=== PATIENT | male | born 1945 | race Asian ===

== ENCOUNTER 2018-10-26 13:34 | Emergency (ER) | payer OTHER, MEDICAID ==
[~2018-10-26] VITALS: Ht 162.6 cm; Wt 59.0 kg
[2018-10-26 13:42] VITALS: BP 128/72
--- NOTE | 2018-10-26 13:42 | NUR ---
ED Nurse Note: Pt AAO x2-[address] EMT reported that pt fell on the street and people on the street called, however, pt is denying falling today. He reported that he fell a week ago at home and he hit his Rt shoulder to furniture which left yellowish bruise on it. Pt face reddish and skin intact but cold to touch. Pt was outside raining without umbrella. 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
--- NOTE | 2018-10-26 13:53 | Emergency Room Report ---
History of Present Illness General Chief Complaint: Multiple Trauma/Fall Source: Patient Present Illness HPI Patient brought in via EMS after a ground-level fall. He denies loss of consciousness. He fell a week ago and injured his right shoulder. He is complaining about pain there. There is also bruising. He rates the pain 0 at this time however does complain that there is pain in the shoulder. He is able to use the arm. He denies numbness. There is no unilateral weakness. Patient has a history of hypertension. He states he takes 3 medications for blood pressure but does not know what they are. No fevers, chills, chest pain, palpitations, nausea, vomiting, diarrhea, dysuria , abdominal pain, shortness of breath, depression, visual changes, headache. Denies drinking alcohol. 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 Reviewed Nursing Documentation: PMH: Agreed; PSxH: Agreed Nursing Documentation-PM Past Medical History: No History, Except For Hx Hypertension: Yes Hx Diabetes: Yes Review of Systems All Other Systems: negative except mentioned in HPI Physical Exam Vital Signs Date Time Temp Pulse Resp B/P (MAP) Pulse Ox O2 Delivery O2 Flow Rate FiO2 10/26/18 13:29 97.5 55 18 117/52 100 Room Air Sp02 EP Interpretation: reviewed, normal General Appearance: normal inspection, well appearing, no apparent distress, alert, GCS 15, non-toxic, thin Eyes: right eye other - Cataract; bilateral eye EOMI ENT: moist mucus membranes Neck: full range of motion, no bony tend Respiratory: lungs clear, normal breath sounds, other - Large amount of ecchymoses over the right shoulder and chest area Cardiovascular #1: regular rate, rhythm Cardiovascular #2: 2+ radial (R), 2+ radial (L) Gastrointestinal: normal bowel sounds, non tender, scaphoid Musculoskeletal: back normal, digits/nails normal, other - Sudden tenderness right shoulder with passive range of motion Neurologic: alert, grossly normal, oriented - X2 Psychiatric: mood/affect normal Skin: warm/dry, other - Ecchymoses right shoulder and chest yellow color Medical Decision Making Diagnostic Impression: Primary Impression: Clavicle fracture Qualified Codes: S42.034A - Nondisplaced fracture of lateral end of right clavicle, initial encounter for closed fracture Additional Impressions: Fall Qualified Codes: W19.XXXA - Unspecified fall, initial encounter Hematoma ER Course Patient presents post falls. He felt today and also a week ago. He has evidence of injury to his right shoulder with bruising. Differential includes fracture, contusion, sprain amongst others. The fact that he has large amount of ecchymoses labs are indicated including coags. In addition a CT the head will be obtained and x-rays of the right shoulder. The patient was offered Tylenol and declined. CT of the head with atrophy possible old infarcts. Shoulder x-ray with comminuted clavicular fracture without displacement. Labs unremarkable aside from minimally elevated white count and BUN. Coags normal. A sling was applied by the ER school bus technician. Position excellent and neurovascular check by me normal. The patient states he wants to return to home. I discussed needing to have follow-up for the fractured clavicle. Patient stable for outpatient observation and treatment. Laboratory Tests Test 10/26/18 14:00 White Blood Count 11.6 K/UL (4.8-10.8) H Red Blood Count 4.85 M/UL (4.70-6.10) Hemoglobin 16.6 G/DL (14.2-18.0) Hematocrit 49.2 % (42.0-52.0) Mean Corpuscular Volume 101 FL (80-99) H Mean Corpuscular Hemoglobin 34.2 PG (27.0-31.0) H Mean Corpuscular Hemoglobin Concent 33.7 G/DL (32.0-36.0) Red Cell Distribution Width 12.1 % (11.6-14.8) Platelet Count 190 K/UL (150-450) Mean Platelet Volume 7.4 FL (6.5-10.1) Neutrophils (%) (Auto) 82.1 % (45.0-75.0) H Lymphocytes (%) (Auto) 12.4 % (20.0-45.0) L Monocytes (%) (Auto) 4.6 % (1.0-10.0) Eosinophils (%) (Auto) 0.2 % (0.0-3.0) Basophils (%) (Auto) 0.6 % (0.0-2.0) Prothrombin Time 10.3 SEC (9.30-11.50) Prothrombin Time INR 1.0 (0.9-1.1) PTT 26 SEC (23-33) Sodium Level 140 MMOL/L (136-145) Potassium Level 5.1 MMOL/L (3.5-5.1) Chloride Level 104 MMOL/L (98-107) Carbon Dioxide Level 26 MMOL/L (21-32) Anion Gap 10 mmol/L (5-15) Blood Urea Nitrogen 22 mg/dL (7-18) H Creatinine 1.2 MG/DL (0.55-1.30) Estimate Glomerular Filtration Rate mL/min (>60) Glucose Level 102 MG/DL (74-106) Calcium Level 9.9 MG/DL (8.5-10.1) Total Bilirubin 1.3 MG/DL (0.2-1.0) H Direct Bilirubin 0.2 MG/DL (0.0-0.3) Aspartate Amino Transferase (AST) 48 U/L (15-37) H Alanine Aminotransferase (ALT) 43 U/L (12-78) Alkaline Phosphatase 117 U/L (46-116) H Total Protein 7.9 G/DL (6.4-8.2) Albumin 4.1 G/DL (3.4-5.0) Globulin 3.8 g/dL Albumin/Globulin Ratio 1.1 (1.0-2.7) Serum Alcohol < 3 mg/dL Rhythm Strip Diag. Results EP Interpretation: yes Rhythm: NSR, no PVC's, no ectopy Other X-Ray Diagnostic Results Other X-Ray Diagnostic Results : # of Views/Limited Vs Complete: 3 View Indication: Pain Interpretation: no dislocation, no soft tissue swelling, other - fx clavicle and possibly scapula CT/MRI/US Diagnostic Results CT/MRI/US Diagnostic Results : Imaging Test Ordered: head Impression atrophy Last Vital Signs Date Time Temp Pulse Resp B/P (MAP) Pulse Ox O2 Delivery O2 Flow Rate FiO2 10/26/18 16:00 98.5 98 19 141/81 99 Room Air 10/26/18 16:00 97 Status: improved Disposition: HOME, SELF-CARE Condition: Stable Scripts Unable to Obtain Active Prescriptions or Reported Meds Nnamdi Lopez MD Oct 26, 2018 13:52
[2018-10-26 14:19] LABS: BASOPHILS % (AUTO) 0.6 % (0.0-2.0); EOSINOPHILS % (AUTO) 0.2 % (0.0-3.0); HEMATOCRIT 49.2 % (42.0-52.0); HEMOGLOBIN 16.6 G/DL (14.2-18.0); LYMPHOCYTES % (AUTO) 12.4 % (20.0-45.0); MEAN CORPUSCULAR VOLUME 101 FL (80-99); MONOCYTES % (AUTO) 4.6 % (1.0-10.0); NEUTROPHILS % (AUTO) 82.1 % (45.0-75.0); PLATELET COUNT 190 K/UL (150-450); RED BLOOD COUNT 4.85 M/UL (4.70-6.10); RED CELL DISTRIBUTION WIDTH 12.1 % (11.6-14.8); WHITE BLOOD COUNT 11.6 K/UL (4.8-10.8)
[2018-10-26 14:36] LABS: ANION GAP 10 mmol/L (5-15); BLOOD UREA NITROGEN 22 mg/dL (7-18); CALCIUM 9.9 MG/DL (8.5-10.1); CARBON DIOXIDE 26 MMOL/L (21-32); CHLORIDE 104 MMOL/L (98-107); CREATININE 1.2 MG/DL (0.55-1.30); POTASSIUM 5.1 MMOL/L (3.5-5.1); SODIUM 140 MMOL/L (136-145)
[2018-10-26 14:44] LABS: ALKALINE PHOSPHATASE 117 U/L (46-116)
[2018-10-26 14:46] LABS: ALANINE AMINOTRANSFERASE 43 U/L (12-78); ALBUMIN 4.1 G/DL (3.4-5.0); ALBUMIN/GLOBULIN RATIO 1.1 (1.0-2.7); ASPARTATE AMINO TRANSFERASE 48 U/L (15-37); BILIRUBIN,TOTAL 1.3 MG/DL (0.2-1.0)
[2018-10-26 14:49] LABS: BILIRUBIN,DIRECT 0.2 MG/DL (0.0-0.3)
--- NOTE | 2018-10-26 14:53 | Diagnostic Imaging Report ---
Indication: Headache and trauma Technique: Contiguous 5 mm thick transaxial imaging of the head obtained in a Siemens Sensation [address] scanner. Soft tissue and bone windows generated. Automatic Exposure Control was utilized. Total Dose length Product (DLP): 1442.[address] Dose Index Volume (CTDIvol): 70.38 mGy Comparison: none Findings: There is marked prominence of the ventricles, basal cisterns, and cerebral sulci consistent with atrophy. Moderate to severe nonspecific, white matter hypoattenuation is noted throughout the brain likely due to chronic small vessel disease. There is encephalomalacia involving the right cerebellum probably postischemic. There is no midline shift, edema, acute hemorrhage, mass effect, or abnormal extra-axial fluid collections. Bones and extra osseous soft tissues are unremarkable. Fairly marked mucosal thickening and opacification of the paranasal sinuses demonstrated. Impression: No acute intracranial bleed, mass effect or edema identified. 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 Moderate to severe chronic small vessel disease involving white matter tracts. Pansinusitis The CT scanner at [facility] is accredited by the [place] [employer] and the scans are performed using dose optimization techniques as appropriate to a performed exam including Automatic Exposure control.
--- NOTE | 2018-10-26 15:08 | NUR ---
ED Nurse Note: Doctor spoke to the pt that he has clavicle fx on Rt side and he will go home with Tylenol prescription. Pt verbalized understanding and agreed to go home with sling.
--- NOTE | 2018-10-26 15:19 | Diagnostic Imaging Report ---
Indication: Right shoulder pain Findings: 3 views of the right shoulder were obtained. There is an unusual appearing comminuted fracture of the distal clavicle. The scapula and humeral head appear normal. There is no glenohumeral dislocation. IMPRESSION: Acute comminuted fracture of the right distal clavicle
[2018-10-26] MEDS ORDERED: TYLENOL325 MG ORAL (15:49)
[2018-10-26 16:00] VITALS: BP 141/81
--- NOTE | 2018-10-26 16:00 | NUR ---
ED Nurse Note: Pt was cleared to be dishcarged by ERMD. Pt has sling on Rt arm and denied pain. Pt received prescription and discharge instruction. Pt AAO x3-4 and verbalized understanding on discharge instruction and taking prescribed medication. ID band and IV removed.
--- NOTE | 2018-10-26 16:33 | NUR ---
ED Nurse Note: Taxi was called since pt was not able to ambulate more than 20 feet without personal assistance. Taxi arrived and pt was assisted to get into the car by nurse.
== END 2018-10-26 16:00 | disposition home or self-care (01) ==
LOC: EDBD → EMR 15:18
DX: S42.034A Nondisplaced fracture of lateral end of right clavicle, initial encounter for closed fracture (principal); S40.011A Contusion of right shoulder, initial encounter; W19.XXXA Unspecified fall, initial encounter; Y92.9 Unspecified place or not applicable; I10 Essential (primary) hypertension; E11.9 Type 2 diabetes mellitus without complications; Z87.891 Personal history of nicotine dependence; Z72.89 Other problems related to lifestyle
CPT/HCPCS: 36415; 70450; 73030; 80053; 82248; 85025; 85610; 85730; 99284; G0480; 80329

== ENCOUNTER 2018-10-27 17:08 | Inpatient (IN) | payer OTHER, MEDICAID ==
[~2018-10-27] VITALS: Ht 154.9 cm; Wt 51.9 kg
[~2018-10-27 17:08] MED LIST: TYLENOL325 MG ORAL
[2018-10-27 17:44] VITALS: BP 111/61
--- NOTE | 2018-10-27 17:54 | NUR ---
ED Nurse Note:pt. had right clavical fx from yesterday and he felt at home today again, pt. is A/ox4 c/o right shoulder pain, placed on cardiac/vascular sonographer
[2018-10-27] MEDS ORDERED: Sodium Chloride 500ML 550 ML IV SCH (18:00)
--- NOTE | 2018-10-27 18:10 | Emergency Room Report ---
History of Present Illness General Chief Complaint: Multiple Trauma/Fall Source: Patient Present Illness HPI Patient was evaluated by me yesterday. He fallen a week ago. Clavicle fracture diagnosed yesterday. He also CT of his head done that was showed atrophy (see below). Patient had good analgesia was discharged back to home. He lives by himself. He was ambulatory yesterday. His friend states he has complained of pain in the shoulder and legs - rated 10/10. He did not fill meds prescribed yesterday. Apparently the patient fell again today. According to a friend is with him he says that he's has uncontrolled pain processes all the patient is smiling). The patient denies any other major somatic complaints. Xray yesterday of shoulder: Acute comminuted fracture of the right distal clavicle CT yesterday of head: Impression: No acute intracranial bleed, mass effect or edema identified. 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 Severe atrophy of the brain. Moderate to severe chronic small vessel disease involving white matter tracts. Pansinusitis. 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 Nursing Documentation: PMH: Agreed; PSxH: Agreed Nursing Documentation-PMH Past Medical History: No History, Except For Hx Hypertension: Yes Hx Diabetes: Yes Review of Systems All Other Systems: negative except mentioned in HPI Physical Exam Vital Signs Date Time Temp Pulse Resp B/P (MAP) Pulse Ox O2 Delivery O2 Flow Rate FiO2 10/27/18 17:29 99.1 88 18 111/61 98 Room Air Sp02 EP Interpretation: reviewed, normal General Appearance: well appearing, no apparent distress, alert, thin Head: normocephalic Eyes: right eye other - Cataract right eye ENT: moist mucus membranes Neck: supple Respiratory: chest non-tender, lungs clear, normal breath sounds Cardiovascular #1: regular rate, rhythm Cardiovascular #2: 2+ radial (R) Gastrointestinal: normal inspection, normal bowel sounds, non tender, no mass, non-distended, scaphoid Genitourinary: no CVA tenderness Musculoskeletal: digits/nails normal, normal range of motion, no calf tenderness, pelvis stable, tender - Clavicle Neurologic: alert, integration solution architect III-XII nml as tested - cataract, motor strength/tone normal, DTRs symmetric, sensory intact, speech normal, other - wide based gait, some unsteadiness, oriented - X2 Psychiatric: mood/affect normal Skin: other - ecchymoses R chest Medical Decision Making Diagnostic Impression: Primary Impression: NSTEMI (non-ST elevated myocardial infarction) Additional Impressions: Multiple injuries due to trauma Multiple falls Fracture, clavicle Qualified Codes: S42.034G - Nondisplaced fracture of lateral end of right clavicle, subsequent encounter for fracture with delayed healing Subacute cerebellar stroke ER Course Patient evaluated yesterday returns with repeated falls. DDX: Electrolyte imbalance, failure to thrive, sequelae from prior cerebellar stroke amongst others. Evaluation with EKG, CXR and labs. Treatment with IV hydration. Friend concerned as living by self and multiple falls. EKG without injury. CXR with clavicle fx. Lab called with + troponin. Aspirin administered. Patient somewhat improved, however, unsteady and needing observation for + troponin and consideration for placement. Denies pain at this time. Admit SDU Dr. Hoffman. Laboratory Tests Test 10/27/18 17:55 10/27/18 18:20 10/27/18 19:12 Urine Color Yellow Urine Appearance Clear Urine pH 5 (4.5-8.0) Urine Specific [place] 1.025 (1.005-1.035) Urine Protein 1+ (NEGATIVE) H Urine Glucose (UA) 2+ (NEGATIVE) H Urine Ketones 1+ (NEGATIVE) H Urine Blood 1+ (NEGATIVE) H Urine Nitrite Negative (NEGATIVE) Urine Bilirubin Negative (NEGATIVE) Urine Urobilinogen 1 MG/DL (0.0-1.0) H Urine Leukocyte Esterase Negative (NEGATIVE) Urine RBC 0-2 /HPF (0 - 0) H Urine WBC 0 /HPF (0 - 0) Urine Squamous Epithelial Cells None /LPF (NONE/OCC) Urine Bacteria None /HPF (NONE) White Blood Count 10.5 K/UL (4.8-10.8) Red Blood Count 4.09 M/UL (4.70-6.10) L Hemoglobin 14.1 G/DL (14.2-18.0) L Hematocrit 41.1 % (42.0-52.0) L Mean Corpuscular Volume 100 FL (80-99) H Mean Corpuscular Hemoglobin 34.5 PG (27.0-31.0) H Mean Corpuscular Hemoglobin Concent 34.4 G/DL (32.0-36.0) Red Cell Distribution Width 11.9 % (11.6-14.8) Platelet Count 219 K/UL (150-450) Mean Platelet Volume 6.2 FL (6.5-10.1) L Neutrophils (%) (Auto) 73.6 % (45.0-75.0) Lymphocytes (%) (Auto) 19.5 % (20.0-45.0) L Monocytes (%) (Auto) 5.9 % (1.0-10.0) Eosinophils (%) (Auto) 0.3 % (0.0-3.0) Basophils (%) (Auto) 0.8 % (0.0-2.0) Prothrombin Time 10.6 SEC (9.30-11.50) Prothrombin Time INR 1.0 (0.9-1.1) PTT 26 SEC (23-33) Sodium Level 141 MMOL/L (136-145) Potassium Level 4.4 MMOL/L (3.5-5.1) Chloride Level 106 MMOL/L (98-107) Carbon Dioxide Level 23 MMOL/L (21-32) Anion Gap 12 mmol/L (5-15) Blood Urea Nitrogen 52 mg/dL (7-18) H Creatinine 1.4 MG/DL (0.55-1.30) H Estimate Glomerular Filtration Rate mL/min (>60) Glucose Level 169 MG/DL (74-106) H Calcium Level 9.7 MG/DL (8.5-10.1) Total Bilirubin 0.9 MG/DL (0.2-1.0) Aspartate Amino Transferase (AST) 43 U/L (15-37) H Alanine Aminotransferase (ALT) 39 U/L (12-78) Alkaline Phosphatase 107 U/L (46-116) Total Creatine Kinase 693 U/L (26-308) H Troponin I 0.223 ng/mL (0.000-0.056) Pro-B-Type Natriuretic Peptide 196 pg/mL (0-125) H Total Protein 7.2 G/DL (6.4-8.2) Albumin 3.8 G/DL (3.4-5.0) Globulin 3.4 g/dL Albumin/Globulin Ratio 1.1 (1.0-2.7) Lipase 211 U/L (73-393) Urine Opiates Screen Negative (NEGATIVE) Urine Barbiturates Screen Negative (NEGATIVE) Phencyclidine (PCP) Screen Negative (NEGATIVE) Urine Amphetamines Screen Negative (NEGATIVE) Urine Benzodiazepines Screen Negative (NEGATIVE) Urine Cocaine Screen Negative (NEGATIVE) Urine Marijuana (THC) Screen Negative (NEGATIVE) EKG Diagnostic Results Rate: normal Rhythm: NSR ST Segments: no acute changes - LVH and PAC Rhythm Strip Diag. Results EP Interpretation: yes Rhythm: NSR, other - rate 81, PAC Chest X-Ray Diagnostic Results Chest X-Ray Diagnostic Results : Chest X-Ray Ordered: Yes # of Views/Limited/Complete: 1 View Indication: Other EP Interpretation: Yes Interpretation: no consolidation, no effusion, no pneumothorax, other - clavicle fx Impression: Other Electronically Signed by: Nnamdi Lopez MD Last Vital Signs Date Time Temp Pulse Resp B/P (MAP) Pulse Ox O2 Delivery O2 Flow Rate FiO2 10/28/18 00:00 97.9 72 16 128/86 (100) 100 10/28/18 00:00 Room Air Status: improved Disposition: ADMITTED INPATIENT Condition: Serious Scripts Unable to Obtain Active Prescriptions or Reported Meds Nnamdi Lopez MD Oct 27, 2018 18:10
[2018-10-27 19:01] LABS: BASOPHILS % (AUTO) 0.8 % (0.0-2.0); EOSINOPHILS % (AUTO) 0.3 % (0.0-3.0); HEMATOCRIT 41.1 % (42.0-52.0); HEMOGLOBIN 14.1 G/DL (14.2-18.0); LYMPHOCYTES % (AUTO) 19.5 % (20.0-45.0); MEAN CORPUSCULAR VOLUME 100 FL (80-99); MONOCYTES % (AUTO) 5.9 % (1.0-10.0); NEUTROPHILS % (AUTO) 73.6 % (45.0-75.0); PLATELET COUNT 219 K/UL (150-450); RED BLOOD COUNT 4.09 M/UL (4.70-6.10); RED CELL DISTRIBUTION WIDTH 11.9 % (11.6-14.8); WHITE BLOOD COUNT 10.5 K/UL (4.8-10.8)
[2018-10-27 19:13] LABS: ANION GAP 12 mmol/L (5-15); BLOOD UREA NITROGEN 52 mg/dL (7-18); CALCIUM 9.7 MG/DL (8.5-10.1); CARBON DIOXIDE 23 MMOL/L (21-32); CHLORIDE 106 MMOL/L (98-107); CREATININE 1.4 MG/DL (0.55-1.30); POTASSIUM 4.4 MMOL/L (3.5-5.1); SODIUM 141 MMOL/L (136-145)
--- NOTE | 2018-10-27 19:20 | NUR ---
ED Nurse Note:\ Recieved report from Aide. patient is alert with son at bedside. patient has no s/s of acute distress.
[2018-10-27 19:24] LABS: ALANINE AMINOTRANSFERASE 39 U/L (12-78); ALBUMIN 3.8 G/DL (3.4-5.0); ALBUMIN/GLOBULIN RATIO 1.1 (1.0-2.7); ALKALINE PHOSPHATASE 107 U/L (46-116); ASPARTATE AMINO TRANSFERASE 43 U/L (15-37); BILIRUBIN,TOTAL 0.9 MG/DL (0.2-1.0); CREATINE KINASE 693 U/L (26-308)
[2018-10-27] MEDS ORDERED: Nitroglycerin 2% oint pkt TOPIC ONE (19:30)
[2018-10-27 19:42] LABS: APPEARANCE,URINE CLEAR; BILIRUBIN, URINE NEGATIVE (NEGATIVE); GLUCOSE, URINE (UA) 2+ (NEGATIVE); KETONES,URINE 1+ (NEGATIVE); LEUKOCYTE ESTERASE ,URINE NEGATIVE (NEGATIVE); NITRITE,URINE NEGATIVE (NEGATIVE); PH,URINE 5 (4.5-8.0); PROTEIN,URINE 1+ (NEGATIVE); UROBILINOGEN,URINE 1 MG/DL (0.0-1.0)
[2018-10-27 19:43] LABS: COLOR,URINE YELLOW
--- NOTE | 2018-10-27 20:00 | NUR ---
ED Nurse Note: Patient's son is leaving and would like to be contacted by hospital to speak with social worker psychiatric in the morning.
[2018-10-27] MEDS ORDERED: Nitroglycerin Subl 0.4mg tab SL PRN (20:15)
[2018-10-27] MEDS ORDERED: dilTIAZem HCl 25mg/5ml Inj IV PRN (20:15)
[2018-10-27] MEDS ORDERED: Miralax 17gm pkt ORAL PRN (20:15)
[2018-10-27] MEDS ORDERED: Ketorolac 30mg Inj IV PRN (20:15)
[2018-10-27] MEDS ORDERED: Enalaprilat 2.5mg/2ml Inj IV PRN (20:15)
[2018-10-27] MEDS ORDERED: Morphine Sulfate 4mg/ml Inj (IV/IM USE ONLY) IVP PRN (20:15)
[2018-10-27] MEDS ORDERED: Albuterol/Ipratropium 3ml neb HHN PRN (20:15)
[2018-10-27 21:00] VITALS: BP 134/86
--- NOTE | 2018-10-27 21:00 | NUR ---
NURSE NOTES: Patient arrived to 2W room 236-1 via gurney. accompanied by 2 ED staff members. Received report from RICHARD MAJANO in ED. Patient is Awake, Alert able to make needs known. Breathing on RA with no SOB. SR on monitor. vs stable. afebrile. c/o pain in right shoulder(10). will give pain Meds as ordered.skin body assessment done, no open wound noted. slight ecchymosis on rt shoulder and upper chest area. hospital orientation given to patient.able to use urinal.call light in reach.bed in locked and lowest position. patient has h/o multiple falls. safety measures initiated.will continue to monitor closely.
[2018-10-27] MEDS: Heparin 5000 units/ml inj SUBQ SCH (22:24)
--- NOTE | 2018-10-27 22:27 | NUR ---
ED Nurse Note: Patient cleared for admission transport. eport given prior to transport to Agatha MAJANO. Patient is ambulatory with steady gait, A&ox4, no s/s of acute distress. Accompanied by RN and ERtech to floor.
[2018-10-28] VITALS: BP 128/86
--- NOTE | 2018-10-28 02:00 | NUR ---
NURSE NOTES: Report received from Nichole Leung RN. Pt is sleeping in bed in stable condition. Pt is easily arousable to name and light touch. Pt is awake, alert, and oriented x4, primarily Malay speaking. Pt is on room air and breathing is even and unlabored. No acute distress noted. Pt IV site is asymptomatic, patent, and intact. Bed is in lowest position with brake engaged, side rails up x3, and bed alarm on. Call light and side table are within reach. Will continue to monitor.
--- NOTE | 2018-10-28 02:10 | NUR ---
HAND-OFF: Report given to ANDREY MAJANO using SBAR. Patient asleep in no acute distress noted.
[2018-10-28 04:00] VITALS: BP 100/65
--- NOTE | 2018-10-28 07:30 | NUR ---
NURSE NOTES: Received patient from Jolie MAJANO. Patient VS stable at this time with no sign of acute distress at this time. Patient has history of multiple falls at this time. Patient bed alarm on. Patient admitted for fractured clavicle at this time that occurred when he fell a week ago. Patient is alert and oriented at this time and primarily Pashto speaking. Patient is on room air with stable saturation. Patient is on regular diet but reports that he does not want to eat his breakfast at this time. Patient has a urinal at the bedside. Patient has a bruise on the right shoulder from clavicle fracture. Patient has a left forearm 20G PIV that is saline locked at this time. Patient bed in low position with bed alarm on and call light in reach at this time.
--- NOTE | 2018-10-28 07:30 | NUR ---
HAND-OFF: Report given to Anita Brown RN. Pt is resting in bed in stable condition. No acute distress noted. Endorsed plan of care.
[2018-10-28 07:33] LABS: BASOPHILS % (AUTO) 0.8 % (0.0-2.0); EOSINOPHILS % (AUTO) 1.8 % (0.0-3.0); HEMATOCRIT 40.3 % (42.0-52.0); HEMOGLOBIN 13.7 G/DL (14.2-18.0); LYMPHOCYTES % (AUTO) 35.4 % (20.0-45.0); MEAN CORPUSCULAR VOLUME 102 FL (80-99); MONOCYTES % (AUTO) 7.6 % (1.0-10.0); NEUTROPHILS % (AUTO) 54.5 % (45.0-75.0); PLATELET COUNT 211 K/UL (150-450); RED BLOOD COUNT 3.97 M/UL (4.70-6.10); RED CELL DISTRIBUTION WIDTH 12.1 % (11.6-14.8); WHITE BLOOD COUNT 7.6 K/UL (4.8-10.8)
[2018-10-28 08:00] VITALS: BP 128/60
[2018-10-28 08:15] LABS: CHOLESTEROL 138 MG/DL (< 200); HDL CHOLESTEROL 61 MG/DL (40-60); TRIGLYCERIDES 42 MG/DL (30-150)
[2018-10-28] MEDS ORDERED: Aspirin Baby 81mg ORAL SCH (09:00)
[2018-10-28] MEDS: Heparin 5000 units/ml inj SUBQ SCH ×2 (09:31→21:00)
--- NOTE | 2018-10-28 11:21 | NUR ---
Social Work [place][phone][place] currently at bedside, assisting patient with decision making (patient does not have any family or other friends to assist). Patient confirmed with this SW would like friendEsteban to make decisions, as needed. Advanced Directive provided to friend to assist. Patient appears to show some forgetfulness, unable to recall his personal information at this time. Patient also is unable to care for self; will need senior care halfway placement (in Faroese-speaking facility). Friend and patient both aware and in agreement with SNF placement. Friend making attempts to locate accurate Social Security number; spoke with pharmacy who provided date of : 1945, but unable to provide Social Security number. office: Dr. Sheron Guzman Mon: [phone]. This SW made an attempt to speak with MD office to verify Social Security number (currently out of office on lunch). SW to follow.
--- NOTE | 2018-10-28 11:41 | Consultation ---
History of Present Illness General Date patient seen: Oct 28, 2018 Chief Complaint: Multiple Trauma/Fall Present Illness HPI 75 year old male with hx of dementia had an episode of fall last week resulting in right clavicular fracture. Pt was brought in by his friend to ER b/o other episodes of fall. Pt lives alone and he probably is not able to take care of himself. Initial evaluation in ER showed that he has elevated troponin level. He is admitted to telemetry for further management. Allergies: Coded Allergies: No Known Allergies (Unverified , 10/26/18) Medication History Unable to Obtain Active Prescriptions or Reported Meds Patient History Healthcare decision maker Resuscitation status Full Code Advanced Directive on File No Past Medical/Surgical History Past Medical/Surgical History: (1) Multiple injuries due to trauma (2) Multiple falls (3) Fracture, clavicle Review of Systems All Other Systems: negative except mentioned in HPI Physical Exam General Appearance: WD/WN Lines, tubes and drains: peripheral, central line HEENT: atraumatic, anicteric Neck: non-tender, normal alignment Respiratory/Chest: chest wall non-tender, lungs clear Cardiovascular/Chest: normal peripheral pulses, normal rate, no gallop/murmur Abdomen: normal bowel sounds Last 24 Hour Vital Signs Date Time Temp Pulse Resp B/P (MAP) Pulse Ox O2 Delivery O2 Flow Rate FiO2 10/28/18 08:00 73 10/28/18 08:00 97.7 74 16 128/60 (82) 98 10/28/18 08:00 Room Air 10/28/18 07:05 81 16 Room Air 21 10/28/18 04:00 60 10/28/18 04:00 97.5 60 16 100/65 (77) 98 10/28/18 04:00 Room Air 10/28/18 00:00 97.9 72 16 128/86 (100) 100 10/28/18 00:00 Room Air 10/28/18 00:00 66 10/27/18 21:43 68 10/27/18 21:00 Room Air 10/27/18 21:00 99.1 78 18 112/61 98 Room Air 88 10/27/18 21:00 97.5 69 20 134/86 (102) 98 10/27/18 19:54 112/61 10/27/18 17:44 99.1 88 18 111/61 98 Room Air 10/27/18 17:44 88 18 Room Air 10/27/18 17:29 99.1 88 18 111/61 98 Room Air Intake and Output 10/27/18 10/28/18 19:00 07:00 Intake Total 120 ml Output Total 200 ml Balance -80 ml Intake Oral 120 ml Output Urine Total 200 ml # Voids 3 Laboratory Tests Test 10/27/18 17:55 10/27/18 18:20 10/27/18 19:12 10/28/18 04:00 Urine Color Yellow Urine Appearance Clear Urine pH 5 (4.5-8.0) Urine Specific [place] 1.025 (1.005-1.035) Urine Protein 1+ (NEGATIVE) H Urine Glucose (UA) 2+ (NEGATIVE) H Urine Ketones 1+ (NEGATIVE) H Urine Blood 1+ (NEGATIVE) H Urine Nitrite Negative (NEGATIVE) Urine Bilirubin Negative (NEGATIVE) Urine Urobilinogen 1 MG/DL (0.0-1.0) H Urine Leukocyte Esterase Negative (NEGATIVE) Urine RBC 0-2 /HPF (0 - 0) H Urine WBC 0 /HPF (0 - 0) Urine Squamous Epithelial Cells None /LPF (NONE/OCC) Urine Bacteria None /HPF (NONE) White Blood Count 10.5 K/UL (4.8-10.8) 7.6 K/UL (4.8-10.8) Red Blood Count 4.09 M/UL (4.70-6.10) L 3.97 M/UL (4.70-6.10) L Hemoglobin 14.1 G/DL (14.2-18.0) L 13.7 G/DL (14.2-18.0) L Hematocrit 41.1 % (42.0-52.0) L 40.3 % (42.0-52.0) L Mean Corpuscular Volume 100 FL (80-99) H 102 FL (80-99) H Mean Corpuscular Hemoglobin 34.5 PG (27.0-31.0) H 34.4 PG (27.0-31.0) H Mean Corpuscular Hemoglobin Concent 34.4 G/DL (32.0-36.0) 33.8 G/DL (32.0-36.0) Red Cell Distribution Width 11.9 % (11.6-14.8) 12.1 % (11.6-14.8) Platelet Count 219 K/UL (150-450) 211 K/UL (150-450) Mean Platelet Volume 6.2 FL (6.5-10.1) L 6.5 FL (6.5-10.1) Neutrophils (%) (Auto) 73.6 % (45.0-75.0) 54.5 % (45.0-75.0) Lymphocytes (%) (Auto) 19.5 % (20.0-45.0) L 35.4 % (20.0-45.0) Monocytes (%) (Auto) 5.9 % (1.0-10.0) 7.6 % (1.0-10.0) Eosinophils (%) (Auto) 0.3 % (0.0-3.0) 1.8 % (0.0-3.0) Basophils (%) (Auto) 0.8 % (0.0-2.0) 0.8 % (0.0-2.0) Prothrombin Time 10.6 SEC (9.30-11.50) 10.7 SEC (9.30-11.50) Prothromb Time International Ratio 1.0 (0.9-1.1) 1.0 (0.9-1.1) Activated Partial Thromboplast Time 26 SEC (23-33) 27 SEC (23-33) Sodium Level 141 MMOL/L (136-145) Potassium Level 4.4 MMOL/L (3.5-5.1) Chloride Level 106 MMOL/L (98-107) Carbon Dioxide Level 23 MMOL/L (21-32) Anion Gap 12 mmol/L (5-15) Blood Urea Nitrogen 52 mg/dL (7-18) H Creatinine 1.4 MG/DL (0.55-1.30) H Estimat Glomerular Filtration Rate mL/min (>60) Glucose Level 169 MG/DL (74-106) H Calcium Level 9.7 MG/DL (8.5-10.1) Total Bilirubin 0.9 MG/DL (0.2-1.0) Aspartate Amino Transf (AST/SGOT) 43 U/L (15-37) H Alanine Aminotransferase (ALT/SGPT) 39 U/L (12-78) Alkaline Phosphatase 107 U/L (46-116) Total Creatine Kinase 693 U/L (26-308) H Troponin I 0.223 ng/mL (0.000-0.056) 0.203 ng/mL (0.000-0.056) Pro-B-Type Natriuretic Peptide 196 pg/mL (0-125) H Total Protein 7.2 G/DL (6.4-8.2) Albumin 3.8 G/DL (3.4-5.0) Globulin 3.4 g/dL Albumin/Globulin Ratio 1.1 (1.0-2.7) Lipase 211 U/L (73-393) Urine Opiates Screen Negative (NEGATIVE) Urine Barbiturates Screen Negative (NEGATIVE) Phencyclidine (PCP) Screen Negative (NEGATIVE) Urine Amphetamines Screen Negative (NEGATIVE) Urine Benzodiazepines Screen Negative (NEGATIVE) Urine Cocaine Screen Negative (NEGATIVE) Urine Marijuana (THC) Screen Negative (NEGATIVE) C-Reactive Protein, Quantitative < 0.4 mg/dL (0.00-0.90) Triglycerides Level 42 MG/DL (30-150) Cholesterol Level 138 MG/DL (< 200) LDL Cholesterol 64 mg/dL (<100) HDL Cholesterol 61 MG/DL (40-60) H Cholesterol/HDL Ratio 2.3 (3.3-4.4) L Thyroid Stimulating Hormone (TSH) 0.690 uiU/mL (0.358-3.740) Height (Feet): 5 Height (Inches): 1.00 Weight (Pounds): 127 Medications Current Medications Medications (Trade) Dose Ordered Sig/Oscar Route PRN Reason Start Time Stop Time Status Last Admin Dose Admin Acetaminophen (Tylenol) 650 mg Q4H PRN ORAL FEVER 10/27/18 20:15 11/26/18 20:14 Albuterol/ Ipratropium (Albuterol/ Ipratropium) 3 ml Q4H PRN HHN Shortness of Breath 10/27/18 20:15 11/01/18 20:14 Aspirin (ASA) 162 mg DAILY ORAL 10/28/18 09:00 11/27/18 08:59 10/28/18 09:30 Diltiazem HCl (Cardizem) 10 mg Q1H PRN IV heart rate more than 120 10/27/18 20:15 11/26/18 20:14 Enalaprilat (Vasotec) 2.5 mg Q6H PRN IV sbp more than 160 10/27/18 20:15 11/26/18 20:14 Heparin Sodium (Porcine) (Heparin 5000 units/ml) 5,000 units EVERY 12 HOURS SUBQ 10/27/18 21:00 11/26/18 20:59 10/28/18 09:31 Ketorolac Tromethamine (Toradol 30mg) 30 mg Q6H PRN IV moderate pain ( 4-6) 10/27/18 20:15 11/01/18 20:14 Morphine Sulfate (Morphine Sulfate) 2 mg Q4H PRN IVP severe Pain (Pain Scale 7-10) 10/27/18 20:15 11/03/18 20:14 10/27/18 22:20 Nitroglycerin (Ntg) 0.4 mg Q5M PRN SL Prn Chest Pain 10/27/18 20:15 11/26/18 20:14 Ondansetron HCl (Zofran) 4 mg Q6H PRN IVP Nausea & Vomiting 10/27/18 20:15 11/26/18 20:14 Polyethylene Glycol (Miralax) 17 gm DAILYPRN PRN ORAL Constipation 10/27/18 20:15 11/26/18 20:14 Temazepam (Restoril) 15 mg HSPRN PRN ORAL Insomnia 10/27/18 20:15 11/03/18 20:14 Assessment/Plan Problem List: (1) NSTEMI (non-ST elevated myocardial infarction) ICD Codes: I21.4 - Non-ST elevation (NSTEMI) myocardial infarction SNOMED: 141838855 (2) Multiple injuries due to trauma ICD Codes: T07.XXXA - Unspecified multiple injuries, initial encounter SNOMED: 677978629 (3) Multiple falls ICD Codes: R29.6 - Repeated falls SNOMED: 820731804 (4) Fracture, clavicle ICD Codes: S42.009A - Fracture of unspecified part of unspecified clavicle, initial encounter for closed fracture SNOMED: 50616094 Qualifiers: Qualified Codes: S42.034G - Nondisplaced fracture of lateral end of right clavicle, subsequent encounter for fracture with delayed healing Assessment/Plan serial ekg, troponin, Echo cardiac evaluation symptomatic treatment pian management pt/ot social service consult dvt prophylaxis Bushra Payne MD Oct 28, 2018 11:41
[2018-10-28 12:00] VITALS: BP 140/85
[2018-10-28 12:03] LABS: CREATINE KINASE 577 U/L (26-308)
[2018-10-28] MEDS ORDERED: Albuterol/Ipratropium 3ml neb HHN PRN (12:15)
[2018-10-28] MEDS ORDERED: Nitroglycerin Subl 0.4mg tab SL PRN (12:15)
[2018-10-28] MEDS ORDERED: dilTIAZem HCl 25mg/5ml Inj IV PRN (12:15)
--- NOTE | 2018-10-28 12:18 | Diagnostic Imaging Report ---
Indication: Dyspnea Comparison: None A single view chest radiograph was obtained. Findings: There is a right distal clavicle fracture noted. This is associated with the acromioclavicular dislocation. The distal clavicle is high riding. Heart is borderline enlarged. Lungs are clear. Aorta is ectatic and mildly calcified. IMPRESSION: No acute cardiopulmonary abnormalities
--- NOTE | 2018-10-28 12:34 | NUR ---
NURSE NOTES: Patient VS stable at this time with no sign of acute distress. Patient sitting up in bed and eating lunch at this time. Patient does not want to wear his radiation monitor. He has taken it off several times. At this time it has been placed back on him without resistance. Will continue to monitor and encourage him to keep the monitor leads in place.
[2018-10-28] MEDS ORDERED: Ketorolac 30mg Inj IV PRN (13:00)
[2018-10-28] MEDS ORDERED: Enalaprilat 2.5mg/2ml Inj IV PRN (13:00)
[2018-10-28] MEDS ORDERED: Miralax 17gm pkt ORAL PRN (13:00)
[2018-10-28] MEDS ORDERED: Morphine Sulfate 4mg/ml Inj (IV/IM USE ONLY) IVP PRN (13:00)
--- NOTE | 2018-10-28 13:15 | NUR ---
NURSE NOTES: Received report from Anita MAJANO. Pt was transferred from [facility] to [id number] via hospital bed. Per media monitor Cindy, will keep same monitor from [facility] on pt, while pt is at Tele unit. Pt is awake, alert, oriented x4, Spanish speaking, bilingual in [place]ian. Denies pain, on room air with no respiratory distress. IV access on left FA #[id number] saline lock, patent/intact. Skin is intact, right shoulder bruise due to post-recent fall at home. Pt has cane at bedside, and is placed on fall precautions due to recent multiple falls at his residence. Call light is placed within easy reach, bed in lowest position, two side rails up, brakes engaged, alarm on . Addendum: 10/28/18 at 1800 by RATNA TORRES RN Pt's belongings checked with the transferring nurse and list signed in front of the pt.
--- NOTE | 2018-10-28 15:34 | Cardiology Report ---
APPROVED REPORT EXAM: Two-dimensional and M-mode echocardiogram with Doppler and color Doppler. INDICATION Left ventricular function M-Mode DIMENSIONS IVSd1.6 (0.7-1.1cm)Left Atrium (MM)3.7 (1.6-4.0cm) LVDd3.5 (3.5-5.6cm)Aortic Root4.0 (2.0-3.7cm) PWd0.7 (0.7-1.1cm)Aortic Cusp Exc.1.9 (1.5-2.0cm) LVDs2.3 (2.5-4.0cm) PWs1.0 cm Normal left ventricular chamber size, systolic function and wall motion. Left ventricular ejection fraction estimated to be 65 %. Moderate left ventricular hypertrophy by 2D. No evidence of pericardial effusion Left atrial size at upper limits of normal. Right cardiac chamber sizes are within normal limits. Focal aortic valve sclerosis with adequate cusp excursion. Thickened mitral valve leaflets with normal excursion. Mitral annulus and aortic root calcification. Pulmonic valve not well visualized. Normal tricuspid valve structure. IVC at normal size measuring at 1.6 cm with slight physiologic collapse. A color flow and spectral Doppler study was performed and revealed: Trace aortic regurgitation. Mild mitral regurgitation. Mitral diastolic velocities suggest mildly reduced left ventricular relaxation c/w mild diastolic dysfunction (Grade I). Trace to mild tricuspid regurgitation. Tricuspid systolic velocities suggests peak right ventricular systolic pressure of 37 mmHg, consistent with mild pulmonary hypertension.
--- NOTE | 2018-10-28 15:54 | Cardiology Report ---
APPROVED REPORT EKG Measurement Heart [id number] Normal sinus rhythm Marked ST abnormality, possible inferior subendocardial injury Abnormal ECG
--- NOTE | 2018-10-28 15:56 | History & Physical ---
History and Physical History & Physicial Curry Hoffman MD Oct 28, 2018 15:56
[2018-10-28 16:00] VITALS: BP 115/65
--- NOTE | 2018-10-28 18:59 | Cardiology Progress Note ---
Assessment/Plan Assessment/Plan [id number] min trop abnm no peak or dang pattern to suggest acs ekg abn ? related to lvh fall nonsyncopal will follow Objective Last 24 Hour Vital Signs Date Time Temp Pulse Resp B/P (MAP) Pulse Ox O2 Delivery O2 Flow Rate FiO2 10/28/18 16:00 97.3 72 20 115/65 (82) 98 10/28/18 16:00 74 10/28/18 16:00 Room Air 10/28/18 12:00 97.5 69 18 140/85 (103) 98 10/28/18 12:00 74 10/28/18 12:00 Room Air 10/28/18 08:00 73 10/28/18 08:00 97.7 74 16 128/60 (82) 98 10/28/18 08:00 Room Air 10/28/18 07:05 81 16 Room Air 21 10/28/18 04:00 60 10/28/18 04:00 97.5 60 16 100/65 (77) 98 10/28/18 04:00 Room Air 10/28/18 00:00 97.9 72 16 128/86 (100) 100 10/28/18 00:00 Room Air 10/28/18 00:00 66 10/27/18 21:43 68 10/27/18 21:00 Room Air 10/27/18 21:00 99.1 78 18 112/61 98 Room Air 88 10/27/18 21:00 97.5 69 20 134/86 (102) 98 10/27/18 19:54 112/61 Intake and Output 10/27/18 10/28/18 19:00 07:00 Intake Total 120 ml Output Total 200 ml Balance -80 ml Intake Oral 120 ml Output Urine Total 200 ml # Voids 3 Laboratory Tests Test 10/27/18 19:12 10/28/18 04:00 10/28/18 11:45 Urine Opiates Screen Negative (NEGATIVE) Urine Barbiturates Screen Negative (NEGATIVE) Phencyclidine (PCP) Screen Negative (NEGATIVE) Urine Amphetamines Screen Negative (NEGATIVE) Urine Benzodiazepines Screen Negative (NEGATIVE) Urine Cocaine Screen Negative (NEGATIVE) Urine Marijuana (THC) Screen Negative (NEGATIVE) White Blood Count 7.6 K/UL (4.8-10.8) Red Blood Count 3.97 M/UL (4.70-6.10) L Hemoglobin 13.7 G/DL (14.2-18.0) L Hematocrit 40.3 % (42.0-52.0) L Mean Corpuscular Volume 102 FL (80-99) H Mean Corpuscular Hemoglobin 34.4 PG (27.0-31.0) H Mean Corpuscular Hemoglobin Concent 33.8 G/DL (32.0-36.0) Red Cell Distribution Width 12.1 % (11.6-14.8) Platelet Count 211 K/UL (150-450) Mean Platelet Volume 6.5 FL (6.5-10.1) Neutrophils (%) (Auto) 54.5 % (45.0-75.0) Lymphocytes (%) (Auto) 35.4 % (20.0-45.0) Monocytes (%) (Auto) 7.6 % (1.0-10.0) Eosinophils (%) (Auto) 1.8 % (0.0-3.0) Basophils (%) (Auto) 0.8 % (0.0-2.0) Prothrombin Time 10.7 SEC (9.30-11.50) Prothromb Time International Ratio 1.0 (0.9-1.1) Activated Partial Thromboplast Time 27 SEC (23-33) Uric Acid 7.5 MG/DL (2.6-7.2) H Total Creatine Kinase 577 U/L (26-308) H Troponin I 0.203 ng/mL (0.000-0.056) 0.149 ng/mL (0.000-0.056) C-Reactive Protein, Quantitative < 0.4 mg/dL (0.00-0.90) Triglycerides Level 42 MG/DL (30-150) Cholesterol Level 138 MG/DL (< 200) LDL Cholesterol 64 mg/dL (<100) HDL Cholesterol 61 MG/DL (40-60) H Cholesterol/HDL Ratio 2.3 (3.3-4.4) L Thyroid Stimulating Hormone (TSH) 0.690 uiU/mL (0.358-3.740) Jaiden Lee MD Oct 28, 2018 18:59
--- NOTE | 2018-10-28 19:10 | NUR ---
NURSE NOTES: Received report from Karen Blackman RN. Pt is resting in the bed in RA. No respiratory distress. No s/s of infection on IV site. Safety measures are applied with bed alarm on and bed in lowest position with side rails up x3, and breaks are engaged. Call light and side table are w/in reach.
--- NOTE | 2018-10-28 19:43 | NUR ---
HAND-OFF: Report given to Minna MAJANO. Pt is resting in bed in stable condition. Endorsed plan of care.
[2018-10-28 20:00] VITALS: BP 134/86
--- NOTE | 2018-10-28 20:15 | History and Physical Report ---
DATE OF ADMISSION: 10/27/2018 CHIEF COMPLAINT: Multiple falls with right shoulder distal clavicle fracture. HISTORY OF PRESENT ILLNESS: This is a 72 years old gentleman, who denies any past medical history except dementia, who was presented to the hospital on 10/26/2018 after had a fall. He sustained injury to the right clavicle area and shortly after initial evaluation at that time, the patient was diagnosed with right distal clavicle fracture and a CT scan of the head was unremarkable and subsequently the patient was discharged home. However, at home, he was complaining about severe pain and shortly after initial evaluation in the emergency room, was noted to have elevated troponin and the patient was admitted to telemetry for further evaluation and possible cardiac workup. PAST MEDICAL HISTORY/PAST SURGICAL HISTORY: As above, history of dementia with multiple falls. MEDICATIONS: At home, none. ALLERGIES: No known drug allergies. SOCIAL HISTORY: The patient has occasional drinking. No substance abuse. No alcohol abuse. FAMILY HISTORY: Noncontributory. REVIEW OF SYSTEMS: Mostly as above. Denies any dysuria, frequency, or hematuria. History is very limited, secondary to the patient's status. History is mostly taken from the ER chart. PHYSICAL EXAMINATION: VITAL SIGNS: On admission, temperature 97.7, pulse of 74, respirations 16, and blood pressure 128/60. GENERAL: The patient is awake, responsive, in no acute distress. HEAD AND NECK: Pupils are equal and reactive to light. Extraocular movements are intact. Neck was supple. No JVD. LUNGS: Good air entry. No wheezes or rales. HEART: S1, S2. Regular rhythm. No gallops. ABDOMEN: Soft, nondistended, and nontender. Positive bowel sounds. EXTREMITIES: No cyanosis, clubbing, or edema. Right shoulder has a tenderness with minimal movement. NEUROLOGIC: Cranial nerves II through XII are grossly intact. Motor is 5/5 in all extremities. Gait was not assessed due to the patient's status. LABORATORY AND DIAGNOSTIC DATA: Laboratory on admission, WBC of 10.5, hemoglobin 14, hematocrit 41, and platelets 219. Sodium 141, potassium 4.4, chloride 106, bicarbonate 23, BUN 52, creatinine 1.5, and glucose is 169. Total CK is 693. ProBNP of 196. First troponin is 0.223, second troponin 0.203, and a third troponin 0.149. Cholesterol is 138. PT of 10.7, INR 1.0, and PTT of 27. UA is +1 protein, +2 glucose, +1 ketones, +1 urobilirubin. Urine drug screen is negative. Echocardiogram is done with an ejection fraction of 65%. Otherwise, an unremarkable chest x-ray, no acute cardiopulmonary disease. Right distal clavicle fracture was noted. ASSESSMENT: 1. Recurrent falls with right distal clavicle fracture. 2. Mild elevation of troponin. 3. Dehydration with prerenal azotemia. PLAN: Admit the patient to telemetry. We will follow up with serial cardiac enzymes and EKG. Discussed with Dr. Payne, Pulmonary, Critical Care. We will follow up with PT evaluation. IV hydration. Code status, Full Code. DVT prophylaxis, heparin subcutaneously. Curry Hoffman M.D. DR: AMRITA JOB#: [id number] CC:
--- NOTE | 2018-10-28 21:45 | Consultation ---
DATE OF CONSULTATION: 10/28/2018 CARDIAC CONSULTATION CONSULTING PHYSICIAN: Jaiden Lee M.D. REFERRING PHYSICIANS: 1. Curry Hoffman M.D. 2. Bushra Payne M.D. REASON FOR REFERRAL: Abnormal cardiac enzymes. HISTORY OF PRESENT ILLNESS: This is a 72-year-old gentleman with history of fall yesterday, apparently nonsyncopal. He was walking up the stairs and he frequently gets dizzy and does fall according to himself by the way the information was obtained from one of the nursing staff who speaks Croatian. Anyway, the patient absolutely denies any pain, pressure, tightness, or heaviness in his chest either at rest or with any activity. He does do some walking around the house. He does not have any PND or orthopnea. No palpitations. No dizziness or lightheadedness on standing. PAST MEDICAL HISTORY: Positive for high blood pressure and high cholesterol. No history of heart attack. No cancer, stroke, hepatitis, tuberculosis, asthma, or emphysema. No ulcers, kidney problems, liver problems, thyroid problems, anemia, or arthritis. ALLERGIES: He is not allergic to any medications. SOCIAL HISTORY: He never smoked or drank alcoholic beverages. He lives at home. REVIEW OF SYSTEMS: GASTROINTESTINAL: He has no nausea or vomiting. He is unable to tell the color of his stools. GENITOURINARY: Negative. PULMONARY: Negative. CONSTITUTIONAL: Negative. NEUROLOGICAL: Negative. PHYSICAL EXAMINATION: GENERAL: Shows to be elderly gentleman, in no respiratory distress. NECK: Supple. No jugular venous distention. LUNGS: Clear to auscultation and percussion. CARDIAC: S1 is normal. S2 is normal. Regular rate and rhythm. No heaves, thrills, gallops, or rubs noted. ABDOMEN: Soft, nontender. Positive bowel sounds. EXTREMITIES: No clubbing or cyanosis nor is there any edema. NEUROLOGICAL: He is awake, alert, responsive, in no apparent respiratory distress. LABORATORY AND DIAGNOSTIC DATA: White count 7.6, hemoglobin 13.7, platelet count of 211,000. Sodium 141, potassium 4.4, chloride 106, bicarbonate of 23, BUN of 52, creatinine 1.4, glucose of 169, AST of 43, ALT of 39, alkaline phosphatase of 107. Total CK of 693. ProBNP was only 196. Three sets of cardiac enzymes are negative; #1 yesterday evening was 0.223, subsequently today was 0.203, subsequently at noontime today was 0.149. His CPK was 577. Uric acid of 5.5. His total cholesterol 138 with LDL of 64 and HDL of 61. TSH was 0.69. He has had an echocardiogram done today that showed ejection fraction of 65%, normal wall motion, moderate left ventricular hypertrophy, mild mitral regurgitation, mild diastolic relaxation abnormalities, PA pressure of 37. His chest x-ray today has shown no acute cardiopulmonary processes. 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 He did have shoulder x-rays that have shown acute fracture of the right distal clavicle. His electrocardiogram shows sinus rhythm with diffuse ST-segment depressions in pretty much I, II, aVF and there is T-wave inversions in V4, V5, and V6, and also the other leads as mentioned. ASSESSMENT AND PLAN: 1. Abnormal cardiac enzymes. 2. Status post nonsyncopal fall with clavicular fracture. 3. Clavicular fracture. 4. Abnormal electrocardiogram. 5. Hypertension. 6. Hyperlipidemia. This patient was seen in cardiac consultation. The patient absolutely denies any pain, pressure, tightness, or heaviness in his chest. There is no chest discomfort whatsoever. Electrocardiogram is significantly abnormal, but the chronicity of this is not known. His echocardiogram shows normal segmental wall motion. The cardiac enzymes are minimally abnormal, but do not show a pattern of to suggest acute coronary syndrome. This may be related to skeletal or muscle injury in the setting of some renal insufficiency. The patient will be followed for the time being. As long as he does not have any chest pain, one may consider performing myocardial perfusion imaging to see if any significant ischemic burden. It is entirely possible that the ST-segment changes although atypical may be related to left ventricular hypertrophy that he has been noted to have on his resting electrocardiogram. Dr. Payne and Dr. Hoffman, thank you for allowing me to participate in the care of this patient. Jaiden Lee M.D. DR: Ju JOB#: [id number] CC:
[2018-10-28 23:34] LABS: APPEARANCE,URINE CLEAR; BILIRUBIN, URINE NEGATIVE (NEGATIVE); COLOR,URINE PALE YELLOW; GLUCOSE, URINE (UA) NEGATIVE (NEGATIVE); KETONES,URINE NEGATIVE (NEGATIVE); LEUKOCYTE ESTERASE ,URINE NEGATIVE (NEGATIVE); NITRITE,URINE NEGATIVE (NEGATIVE); PH,URINE 7 (4.5-8.0); PROTEIN,URINE NEGATIVE (NEGATIVE); UROBILINOGEN,URINE 1 MG/DL (0.0-1.0)
[2018-10-29 04:00] VITALS: BP 147/87
--- NOTE | 2018-10-29 07:45 | NUR ---
HAND-OFF: Report given to Ace Hurtado RN. Stable condition.
--- NOTE | 2018-10-29 07:50 | NUR ---
NURSE NOTES: Received report from GRETEL Buitrago. Patient in bed resting, no active s/s cardiac, respiratory distress noticed at this time. SR with HR 65.Informed to call help for ambulation, bed alarm on, cane on bedside. Denies pain at this time. IV site asymptomatic, paten, intact. Bed on lowest position, side rails up x3, bed alarm on, call light within reach. Will continue to monitor.
[2018-10-29 08:00] VITALS: BP 127/69
[2018-10-29] MEDS: Aspirin Baby 81mg ORAL SCH (08:14)
[2018-10-29] MEDS: Heparin 5000 units/ml inj SUBQ SCH ×2 (08:16→21:00)
--- NOTE | 2018-10-29 08:53 | Pulmonology Progress Note ---
Assessment/Plan Assessment/Plan ASSESSMENT s/p multiple non syncopal falls elevated troponin ? possible NSTEMI acute comminuted right distal clavicle fracture hx of cerebellar stroke, ? possible subacute DM HTN acute kidney injury PLAN OF CARE tele cardio follows troponin with minimal elevation, no peak or dang pattern to suggest ACS as per cardio lipid panel stable on a/PLT therpay wit ASA and NTP ECHO with pEF 65% and RVSP of 37 BP management, currently normotensive, prn only BS management with SSI pain management PT eval and Rx fall precautions will need SNF bowel regimen supportive care monitor renal parameters, lytes, correct lytes prn, avoid nephrotoxics case discussed and evaluated by supervising physician Subjective Allergies: Coded Allergies: No Known Allergies (Unverified , 10/26/18) Subjective denies chest pain, SOB not ambulated yet troponin with minimal elevation Objective Last 24 Hour Vital Signs Date Time Temp Pulse Resp B/P (MAP) Pulse Ox O2 Delivery O2 Flow Rate FiO2 10/29/18 08:39 56 16 Room Air 21 10/29/18 04:00 96.4 66 18 147/87 (107) 98 10/29/18 03:46 65 10/28/18 23:47 63 10/28/18 21:00 Room Air 10/28/18 20:06 77 16 Room Air 21 10/28/18 20:00 97.7 61 18 134/86 (102) 98 10/28/18 19:26 68 10/28/18 16:00 97.3 72 20 115/65 (82) 98 10/28/18 16:00 74 10/28/18 16:00 Room Air 10/28/18 12:00 97.5 69 18 140/85 (103) 98 10/28/18 12:00 74 10/28/18 12:00 Room Air Intake and Output 10/28/18 10/29/18 19:00 07:00 Intake Total 240 ml Output Total 500 ml Balance -260 ml Intake Oral 240 ml Output Urine Total 500 ml # Voids 3 General Appearance: no acute distress HEENT: normocephalic, atraumatic Respiratory/Chest: lungs clear, no accessory muscle use Cardiovascular: normal rate - SR with ST depression , regular rhythm, no JVD Abdomen: soft, non tender, non distended Extremities: no edema Neurologic/Psychiatric: abnormal gait, alert, oriented x 3, responsive Musculoskeletal: normal muscle bulk Laboratory Tests 10/28/18 11:45: Troponin I 0.149H 10/28/18 23:15: Urine Color Pale yellow, Urine Appearance Clear, Urine pH 7, Urine Specific [place] 1.015, Urine Protein Negative, Urine Glucose (UA) Negative, Urine Ketones Negative, Urine Blood Negative, Urine Nitrite Negative, Urine Bilirubin Negative, Urine Urobilinogen 1H, Urine Leukocyte Esterase Negative, Urine RBC 0- 2H, Urine WBC 0-2, Urine Squamous Epithelial Cells Occasional, Urine Bacteria Occasional, Urine Eosinophils None seen, Urine Random Sodium 121H, Urine Potassium Timed 34 Current Medications Medications (Trade) Dose Ordered Sig/Oscar Route PRN Reason Start Time Stop Time Status Last Admin Dose Admin Acetaminophen (Tylenol) 650 mg Q4H PRN ORAL T>100.5 10/28/18 12:15 11/26/18 20:14 Albuterol/ Ipratropium (Albuterol/ Ipratropium) 3 ml Q4H PRN HHN Shortness of Breath 10/28/18 12:15 11/01/18 20:14 Aspirin (ASA) 162 mg DAILY ORAL 10/29/18 09:00 11/27/18 08:59 10/29/18 08:14 Diltiazem HCl (Cardizem) 10 mg Q1H PRN IV heart rate more than 120 BPM 10/28/18 12:15 11/26/18 20:14 Enalaprilat (Vasotec) 2.5 mg Q6H PRN IV sbp more than 160mmHg 10/28/18 13:00 11/26/18 12:59 Heparin Sodium (Porcine) (Heparin 5000 units/ml) 5,000 units EVERY 12 HOURS SUBQ 10/28/18 21:00 11/26/18 20:59 Ketorolac Tromethamine (Toradol 30mg) 30 mg Q6H PRN IV Moderate Pain (Pain Scale 4-6) 10/28/18 13:00 11/02/18 12:59 Morphine Sulfate (Morphine Sulfate) 2 mg Q4H PRN IVP Severe Pain (Pain Scale 7-10) 10/28/18 13:00 11/03/18 12:59 Nitroglycerin (Ntg) 0.4 mg Q5M PRN SL Prn Chest Pain 10/28/18 12:15 11/26/18 20:14 Ondansetron HCl (Zofran) 4 mg Q6H PRN IVP Nausea & Vomiting 10/28/18 13:00 11/26/18 12:59 Polyethylene Glycol (Miralax) 17 gm DAILYPRN PRN ORAL Constipation 10/28/18 13:00 11/26/18 12:59 Temazepam (Restoril) 15 mg HSPRN PRN ORAL Insomnia 10/28/18 21:00 11/03/18 20:59 Johanne Pimentel NP Oct 29, 2018 08:53
--- NOTE | 2018-10-29 09:24 | NUR ---
CASE MANAGEMENT: INITIAL REVIEW 10/27/2018 73 YO M PRESENTED TO OUR ED FROM HOME CC: CONTINUED SHOULDER PAIN. RECENT FALLS. PMHx: HTN. DM. SI:MULTIPLE FALLS. CLAVICLE FRACTURE. T 99.1 HR 88 RR 18 B/P 111/61 SATS 98% ON RA BUN 52 CR 1.4 GLU 169 AST 43 TOTAL CK 693 BNP: 196 TROPONIN 0.223 AND 0.203 IS: NS BOLUS X1 Xray yesterday of shoulder: Acute comminuted fracture of the right distal clavicle CT yesterday of head: Impression: No acute intracranial bleed, mass effect or edema identified. 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 Severe atrophy of the brain. Moderate to severe chronic small vessel disease involving white matter tracts. Pansinusitis. PATIENT ADMITTED TO TELE 10/27/2018 @ 2891 DCP: PATIENT TO BE DISCHARGED TO HOME ONCE MEDICALLY CLEARED. PLAN OF CARE: serial ekg, troponin, Echo cardiac evaluation symptomatic treatment pain management pt/ot eval social service consult dvt prophylaxis 10/28/2018 SI:MULTIPLE FALLS. CLAVICLE FRACTURE. T 97.3 HR 72 RR 20 B/P 115/65 SATS 98% ON RA TOTAL CK: 577 TROPONIN 0.149 IS: ASA PO QD TELE STATUS DCP: PATIENT TO BE DISCHARGED TO HOME ONCE MEDICALLY CLEARED. PLAN OF CARE: serial ekg, troponin cardiac evaluation symptomatic treatment pain management 2D ECHO >>EF 65% 10/29/2018 SI:MULTIPLE FALLS. CLAVICLE FRACTURE. T 96.4 HR 66 RR 18 B/P 147/87 SATS 98% ON RA NO LABS TODAY IS: ASA PO QD TELE STATUS DCP: PATIENT TO BE DISCHARGED TO HOME ONCE MEDICALLY CLEARED. PLAN OF CARE: serial ekg, troponin cardiac evaluation symptomatic treatment pain management pt/ot eval dvt prophylaxis Addendum: 10/29/18 at 1437 by Ashley J Ab CM INTERQUAL MET FOR INTERMEDIATE
--- NOTE | 2018-10-29 11:30 | NUR ---
NURSE NOTES: Dr. Payne made aware patient's caregiver request placement to SNF after discharge. No order given at this time. Will continue to monitor.
[2018-10-29 12:00] VITALS: BP 129/71
--- NOTE | 2018-10-29 13:59 | Cardiology Progress Note ---
Assessment/Plan Problem List: (1) NSTEMI (non-ST elevated myocardial infarction) (2) Fall (3) Clavicle fracture Status: stable, progressing Status Narrative Mr Manzanares is stable from a cardiac standpoint. He had mild troponin elevation, possible demand ischemia, but no chest pain. EKG changes may be due to repolarization rather than ischemia. Assessment/Plan Continue medical therapy - asa. ? statin. Consider stress nuclear study when stable. Check orthostatic VS. Subjective ROS Limited/Unobtainable: No Subjective Mr. Manzanares has no c/o palpitations , chest pain or dizziness ( HX w / family member , niece, translating) Objective Last 24 Hour Vital Signs Date Time Temp Pulse Resp B/P (MAP) Pulse Ox O2 Delivery O2 Flow Rate FiO2 10/29/18 12:00 64 10/29/18 12:00 98.2 67 20 129/71 (90) 98 10/29/18 09:00 Room Air 10/29/18 08:39 56 16 Room Air 21 10/29/18 08:00 99.5 70 20 127/69 (88) 97 10/29/18 08:00 84 10/29/18 04:00 96.4 66 18 147/87 (107) 98 10/29/18 03:46 65 10/28/18 23:47 63 10/28/18 21:00 Room Air 10/28/18 20:06 77 16 Room Air 21 10/28/18 20:00 97.7 61 18 134/86 (102) 98 10/28/18 19:26 68 10/28/18 16:00 97.3 72 20 115/65 (82) 98 10/28/18 16:00 74 10/28/18 16:00 Room Air General Appearance: WD/WN, alert EENT: PERRL/EOMI Neck: non-tender, no JVD Rhythm: NSR Cardiovascular: normal rate, regular rhythm, systolic murmur - ii /iv SIERRA R second ics Respiratory/Chest: lungs clear, normal breath sounds, no respiratory distress Abdomen: non tender, soft Intake and Output 10/28/18 10/29/18 18:59 06:59 Intake Total 240 ml Output Total 500 ml Balance -260 ml Intake Oral 240 ml Output Urine Total 500 ml # Voids 3 2D Echo: echo - nl LV function, mild MR, TR Laboratory Tests Test 10/28/18 23:15 Urine Color Pale yellow Urine Appearance Clear Urine pH 7 (4.5-8.0) Urine Specific [place] 1.015 (1.005-1.035) Urine Protein Negative (NEGATIVE) Urine Glucose (UA) Negative (NEGATIVE) Urine Ketones Negative (NEGATIVE) Urine Blood Negative (NEGATIVE) Urine Nitrite Negative (NEGATIVE) Urine Bilirubin Negative (NEGATIVE) Urine Urobilinogen 1 MG/DL (0.0-1.0) H Urine Leukocyte Esterase Negative (NEGATIVE) Urine RBC 0-2 /HPF (0 - 0) H Urine WBC 0-2 /HPF (0 - 0) Urine Squamous Epithelial Cells Occasional /LPF Urine Bacteria Occasional /HPF (NONE) Urine Eosinophils None seen (NONE SEEN) Urine Random Sodium 121 mmol/L (20-110) H Urine Potassium Timed 34 mmol/L (12-62) Astrid Márquez MD Oct 29, 2018 13:59
--- NOTE | 2018-10-29 15:57 | Internal Med Progress Note ---
Subjective Date of Service: Oct 29, 2018 Physician Name Steven Calhoun Attending Physician Curry Hoffman MD Current Medications Medications (Trade) Dose Ordered Sig/Oscar Route PRN Reason Start Time Stop Time Status Last Admin Dose Admin Acetaminophen (Tylenol) 650 mg Q4H PRN ORAL T>100.5 10/28/18 12:15 11/26/18 20:14 Albuterol/ Ipratropium (Albuterol/ Ipratropium) 3 ml Q4H PRN HHN Shortness of Breath 10/28/18 12:15 11/01/18 20:14 Aspirin (ASA) 162 mg DAILY ORAL 10/29/18 09:00 11/27/18 08:59 10/29/18 08:14 Diltiazem HCl (Cardizem) 10 mg Q1H PRN IV heart rate more than 120 BPM 10/28/18 12:15 11/26/18 20:14 Enalaprilat (Vasotec) 2.5 mg Q6H PRN IV sbp more than 160mmHg 10/28/18 13:00 11/26/18 12:59 Heparin Sodium (Porcine) (Heparin 5000 units/ml) 5,000 units EVERY 12 HOURS SUBQ 10/28/18 21:00 11/26/18 20:59 Ketorolac Tromethamine (Toradol 30mg) 30 mg Q6H PRN IV Moderate Pain (Pain Scale 4-6) 10/28/18 13:00 11/02/18 12:59 Morphine Sulfate (Morphine Sulfate) 2 mg Q4H PRN IVP Severe Pain (Pain Scale 7-10) 10/28/18 13:00 11/03/18 12:59 Nitroglycerin (Ntg) 0.4 mg Q5M PRN SL Prn Chest Pain 10/28/18 12:15 11/26/18 20:14 Ondansetron HCl (Zofran) 4 mg Q6H PRN IVP Nausea & Vomiting 10/28/18 13:00 11/26/18 12:59 Polyethylene Glycol (Miralax) 17 gm DAILYPRN PRN ORAL Constipation 10/28/18 13:00 11/26/18 12:59 Temazepam (Restoril) 15 mg HSPRN PRN ORAL Insomnia 10/28/18 21:00 11/03/18 20:59 Allergies: Coded Allergies: No Known Allergies (Unverified , 10/26/18) ROS Limited/Unobtainable: No Constitutional: Reports: no symptoms HEENT: Reports: no symptoms Cardiovascular: Reports: no symptoms Respiratory: Reports: no symptoms Gastrointestinal/Abdominal: Reports: no symptoms Genitourinary: Reports: no symptoms Neurologic/Psychiatric: Reports: no symptoms Subjective 73 YO M admitted with elevated troponin. Cover for Int Jhonny-Dr Hoffman. Objective Last Vital Signs Date Time Temp Pulse Resp B/P (MAP) Pulse Ox O2 Delivery O2 Flow Rate FiO2 10/29/18 15:00 64 66 73 10/29/18 12:00 98.2 20 129/71 (90) 98 10/29/18 09:00 Room Air 10/29/18 08:39 21 General Appearance: WD/WN, no apparent distress, alert EENT: PERRL/EOMI, normal ENT inspection Neck: non-tender, normal alignment, supple, normal inspection Cardiovascular: normal peripheral pulses, normal rate, regular rhythm, no gallop/murmur, no JVD Respiratory/Chest: chest wall non-tender, lungs clear, normal breath sounds, no respiratory distress, no accessory muscle use Abdomen: normal bowel sounds, non tender, soft, no organomegaly, no mass Extremities: normal range of motion, non-tender Neurologic: beater dumper II-XII grossly normal, no motor/sensory deficits Skin: normal pigmentation, warm/dry Laboratory Tests Test 10/28/18 23:15 Urine Color Pale yellow Urine Appearance Clear Urine pH 7 (4.5-8.0) Urine Specific [place] 1.015 (1.005-1.035) Urine Protein Negative (NEGATIVE) Urine Glucose (UA) Negative (NEGATIVE) Urine Ketones Negative (NEGATIVE) Urine Blood Negative (NEGATIVE) Urine Nitrite Negative (NEGATIVE) Urine Bilirubin Negative (NEGATIVE) Urine Urobilinogen 1 MG/DL (0.0-1.0) H Urine Leukocyte Esterase Negative (NEGATIVE) Urine RBC 0-2 /HPF (0 - 0) H Urine WBC 0-2 /HPF (0 - 0) Urine Squamous Epithelial Cells Occasional /LPF Urine Bacteria Occasional /HPF (NONE) Urine Eosinophils None seen (NONE SEEN) Urine Random Sodium 121 mmol/L (20-110) H Urine Potassium Timed 34 mmol/L (12-62) Intake and Output 10/28/18 10/29/18 18:59 06:59 Intake Total 240 ml Output Total 500 ml Balance -260 ml Intake Oral 240 ml Output Urine Total 500 ml # Voids 3 Assessment/Plan Problem List: (1) Elevated troponin Assessment & Plan: See cardiology note. (2) Alzheimer's dementia (3) Closed right clavicular fracture Status: not improved Steven Calhoun MD Oct 29, 2018 15:57
[2018-10-29 16:00] VITALS: BP 140/75
--- NOTE | 2018-10-29 19:45 | NUR ---
NURSE NOTES: Received report from GRETEL Dorantes. Patient is in bed awake, alert and oriented x3 with no signs of acute distress. Respiration even and non labored on room air. Vitals stable. Bed in lowest position. Call light within reach. Will continue plan of care.
--- NOTE | 2018-10-29 19:45 | NUR ---
HAND-OFF: Report given to GRETEL Garcia. Patient in stable condition.
[2018-10-29 20:00] VITALS: BP 135/74
--- NOTE | 2018-10-29 21:09 | NUR ---
NURSE NOTES: Received report from Laboratory regarding Troponin level of 0.099. Patient remained asymptomatic. Will continue to monitor.
[2018-10-30] VITALS: BP 140/72
[2018-10-30 04:00] VITALS: BP 140/79
--- NOTE | 2018-10-30 07:01 | NUR ---
HAND-OFF: Report given to GRETEL Lindsey. Patient in bed awake with no signs of acute distress. Vitals stable.
--- NOTE | 2018-10-30 07:02 | NUR ---
NURSE NOTES: Received report from GRETEL Garcia. Patient is resting in bed, in stable condition. No s/sx of SOB, breathing is even and unlabored. Denies any presence of pain or discomfort at this time. Bed is in lowest position, brakes engaged, bed alarm on. Call light is kept within easy reach. Will continue to monitor patient.
[2018-10-30 07:32] LABS: BASOPHILS % (AUTO) 0.9 % (0.0-2.0); EOSINOPHILS % (AUTO) 2.3 % (0.0-3.0); HEMATOCRIT 40.8 % (42.0-52.0); LYMPHOCYTES % (AUTO) 28.2 % (20.0-45.0); MEAN CORPUSCULAR VOLUME 101 FL (80-99); MONOCYTES % (AUTO) 7.6 % (1.0-10.0); NEUTROPHILS % (AUTO) 60.9 % (45.0-75.0); PLATELET COUNT 196 K/UL (150-450); RED BLOOD COUNT 4.06 M/UL (4.70-6.10); RED CELL DISTRIBUTION WIDTH 11.8 % (11.6-14.8); WHITE BLOOD COUNT 7.9 K/UL (4.8-10.8)
--- NOTE | 2018-10-30 07:33 | Pulmonology Progress Note ---
Assessment/Plan Assessment/Plan ASSESSMENT s/p multiple non syncopal falls elevated troponin ? possible NSTEMI acute comminuted right distal clavicle fracture hx of cerebellar stroke, ? possible subacute DM HTN acute kidney injury PLAN OF CARE tele cardio follows troponin with minimal elevation, no peak or dang pattern to suggest ACS as per cardio lipid panel stable on a/PLT therpay wit ASA NTP ECHO with pEF 65% and RVSP of 37 BP management, currently normotensive, prn only no orthostatic changes BS management with SSI pain management PT eval and Rx - pending fall precautions will need SNF dc mission planner for SNF placement bowel regimen supportive care monitor renal parameters, lytes, correct lytes prn, avoid nephrotoxics case discussed and evaluated by supervising physician Subjective Allergies: Coded Allergies: No Known Allergies (Unverified , 10/26/18) Subjective denies chest pain, SOB not ambulated yet troponin with minimal elevation, trending down Objective Last 24 Hour Vital Signs Date Time Temp Pulse Resp B/P (MAP) Pulse Ox O2 Delivery O2 Flow Rate FiO2 10/30/18 04:00 52 10/30/18 04:00 97.5 61 20 140/79 (99) 96 10/30/18 01:00 61 63 70 10/30/18 00:00 62 10/30/18 00:00 97.0 62 20 140/72 (94) 98 10/29/18 21:00 Room Air 10/29/18 20:00 98.1 64 20 135/74 (94) 98 10/29/18 20:00 62 10/29/18 19:40 66 18 Room Air 21 10/29/18 16:00 98.8 64 20 140/75 (96) 98 10/29/18 16:00 61 10/29/18 15:00 64 66 73 10/29/18 12:00 64 10/29/18 12:00 98.2 67 20 129/71 (90) 98 10/29/18 09:00 Room Air 10/29/18 08:39 56 16 Room Air 21 10/29/18 08:00 99.5 70 20 127/69 (88) 97 10/29/18 08:00 84 Intake and Output 10/29/18 10/30/18 19:00 07:00 Intake Total 720 ml Output Total 1000 ml 800 ml Balance -280 ml -800 ml Intake Oral 720 ml Output Urine Total 1000 ml 800 ml # Voids 2 Objective General Appearance: no acute distress HEENT: normocephalic, atraumatic Respiratory/Chest: lungs clear, no accessory muscle use Cardiovascular: normal rate - SR with ST depression , regular rhythm, no JVD Abdomen: soft, non tender, non distended Extremities: no edema Neurologic/Psychiatric: abnormal gait, alert, oriented x 3, responsive Musculoskeletal: normal muscle bulk Laboratory Tests 10/29/18 20:15: Troponin I 0.099H 10/30/18 06:55: White Blood Count [Pending], Red Blood Count [Pending], Hemoglobin [Pending], Hematocrit [Pending], Mean Corpuscular Volume [Pending], Mean Corpuscular Hemoglobin [Pending], Mean Corpuscular Hemoglobin Concent [Pending], Red Cell Distribution Width [Pending], Platelet Count [Pending], Mean Platelet Volume [ Pending], Neutrophils (%) (Auto) [Pending], Lymphocytes (%) (Auto) [Pending], Monocytes (%) (Auto) [Pending], Eosinophils (%) (Auto) [Pending], Basophils (%) (Auto) [Pending], Sodium Level [Pending], Potassium Level [Pending], Chloride Level [Pending], Carbon Dioxide Level [Pending], Blood Urea Nitrogen [Pending], Creatinine [Pending], Estimat Glomerular Filtration Rate [Pending], Glucose Level [Pending], Calcium Level [Pending], Triglycerides Level [Pending], Cholesterol Level [Pending], LDL Cholesterol [Pending], HDL Cholesterol [Pending ], Cholesterol/HDL Ratio [Pending] Current Medications Medications (Trade) Dose Ordered Sig/Oscar Route PRN Reason Start Time Stop Time Status Last Admin Dose Admin Acetaminophen (Tylenol) 650 mg Q4H PRN ORAL T>100.5 10/28/18 12:15 11/26/18 20:14 Albuterol/ Ipratropium (Albuterol/ Ipratropium) 3 ml Q4H PRN HHN Shortness of Breath 10/28/18 12:15 11/01/18 20:14 Aspirin (ASA) 162 mg DAILY ORAL 10/29/18 09:00 11/27/18 08:59 10/29/18 08:14 Diltiazem HCl (Cardizem) 10 mg Q1H PRN IV heart rate more than 120 BPM 10/28/18 12:15 11/26/18 20:14 Enalaprilat (Vasotec) 2.5 mg Q6H PRN IV sbp more than 160mmHg 10/28/18 13:00 11/26/18 12:59 Heparin Sodium (Porcine) (Heparin 5000 units/ml) 5,000 units EVERY 12 HOURS SUBQ 10/28/18 21:00 11/26/18 20:59 Ketorolac Tromethamine (Toradol 30mg) 30 mg Q6H PRN IV Moderate Pain (Pain Scale 4-6) 10/28/18 13:00 11/02/18 12:59 Morphine Sulfate (Morphine Sulfate) 2 mg Q4H PRN IVP Severe Pain (Pain Scale 7-10) 10/28/18 13:00 11/03/18 12:59 Nitroglycerin (Ntg) 0.4 mg Q5M PRN SL Prn Chest Pain 10/28/18 12:15 11/26/18 20:14 Ondansetron HCl (Zofran) 4 mg Q6H PRN IVP Nausea & Vomiting 10/28/18 13:00 11/26/18 12:59 Polyethylene Glycol (Miralax) 17 gm DAILYPRN PRN ORAL Constipation 10/28/18 13:00 11/26/18 12:59 Temazepam (Restoril) 15 mg HSPRN PRN ORAL Insomnia 10/28/18 21:00 11/03/18 20:59 Johanne Pimentel NP Oct 30, 2018 07:32
[2018-10-30 08:00] VITALS: BP 155/87
[2018-10-30 08:13] LABS: ANION GAP 9 mmol/L (5-15); BLOOD UREA NITROGEN 23 mg/dL (7-18); CALCIUM 9.5 MG/DL (8.5-10.1); CARBON DIOXIDE 26 MMOL/L (21-32); CHLORIDE 105 MMOL/L (98-107); CHOLESTEROL 168 MG/DL (< 200); HDL CHOLESTEROL 60 MG/DL (40-60); SODIUM 140 MMOL/L (136-145); TRIGLYCERIDES 80 MG/DL (30-150)
[2018-10-30] MEDS: Aspirin Baby 81mg ORAL SCH (08:28)
[2018-10-30] MEDS: Heparin 5000 units/ml inj SUBQ SCH ×2 (08:29→20:10)
--- NOTE | 2018-10-30 09:29 | NUR ---
CASE MANAGEMENT: REVIEW 10/30/2018 SI:MULTIPLE FALLS. CLAVICLE FRACTURE. T 97.5 HR 61 RR 20 B/P 140/79 SATS 96% ON RA BUN 23 IS: ASA PO QD TELE STATUS DCP: PATIENT TO BE DISCHARGED TO HOME ONCE MEDICALLY CLEARED. PLAN OF CARE: serial ekg, troponin cardiac evaluation symptomatic treatment pain management pt/ot eval dvt prophylaxis
[2018-10-30] MEDS ORDERED: Albuterol/Ipratropium 3ml neb HHN PRN (10:45)
[2018-10-30 12:00] VITALS: BP 143/84
--- NOTE | 2018-10-30 12:54 | Internal Med Progress Note ---
Subjective Date of Service: Oct 30, 2018 Physician Name Steevn Calhoun Attending Physician Curry Hoffman MD Current Medications Medications (Trade) Dose Ordered Sig/Oscar Route PRN Reason Start Time Stop Time Status Last Admin Dose Admin Acetaminophen (Tylenol) 650 mg Q4H PRN ORAL T>100.5 10/28/18 12:15 11/26/18 20:14 Albuterol/ Ipratropium (Albuterol/ Ipratropium) 3 ml Q4H PRN HHN Shortness of Breath 10/30/18 10:45 11/03/18 10:44 Aspirin (ASA) 162 mg DAILY ORAL 10/29/18 09:00 11/27/18 08:59 10/30/18 08:28 Diltiazem HCl (Cardizem) 10 mg Q1H PRN IV heart rate more than 120 BPM 10/28/18 12:15 11/26/18 20:14 Enalaprilat (Vasotec) 2.5 mg Q6H PRN IV sbp more than 160mmHg 10/28/18 13:00 11/26/18 12:59 Heparin Sodium (Porcine) (Heparin 5000 units/ml) 5,000 units EVERY 12 HOURS SUBQ 10/28/18 21:00 11/26/18 20:59 10/30/18 08:29 Ketorolac Tromethamine (Toradol 30mg) 30 mg Q6H PRN IV Moderate Pain (Pain Scale 4-6) 10/28/18 13:00 11/02/18 12:59 Morphine Sulfate (Morphine Sulfate) 2 mg Q4H PRN IVP Severe Pain (Pain Scale 7-10) 10/28/18 13:00 11/03/18 12:59 Nitroglycerin (Ntg) 0.4 mg Q5M PRN SL Prn Chest Pain 10/28/18 12:15 11/26/18 20:14 Ondansetron HCl (Zofran) 4 mg Q6H PRN IVP Nausea & Vomiting 10/28/18 13:00 11/26/18 12:59 Polyethylene Glycol (Miralax) 17 gm DAILYPRN PRN ORAL Constipation 10/28/18 13:00 11/26/18 12:59 Temazepam (Restoril) 15 mg HSPRN PRN ORAL Insomnia 10/28/18 21:00 11/03/18 20:59 Allergies: Coded Allergies: No Known Allergies (Unverified , 10/26/18) Subjective 73 YO M with previous right clavicle fracture admitted with elevated troponin. Cover for Int Jhonny-Dr Hoffman. Objective Last Vital Signs Date Time Temp Pulse Resp B/P (MAP) Pulse Ox O2 Delivery O2 Flow Rate FiO2 10/30/18 09:00 72 108 112 10/30/18 09:00 Room Air 10/30/18 08:00 18 21 10/30/18 08:00 98.6 155/87 (109) 98 Laboratory Tests Test 10/29/18 20:15 10/30/18 06:55 Troponin I 0.099 ng/mL (0.000-0.056) White Blood Count 7.9 K/UL (4.8-10.8) Red Blood Count 4.06 M/UL (4.70-6.10) L Hemoglobin 14.0 G/DL (14.2-18.0) L Hematocrit 40.8 % (42.0-52.0) L Mean Corpuscular Volume 101 FL (80-99) H Mean Corpuscular Hemoglobin 34.6 PG (27.0-31.0) H Mean Corpuscular Hemoglobin Concent 34.5 G/DL (32.0-36.0) Red Cell Distribution Width 11.8 % (11.6-14.8) Platelet Count 196 K/UL (150-450) Mean Platelet Volume 8.1 FL (6.5-10.1) Neutrophils (%) (Auto) 60.9 % (45.0-75.0) Lymphocytes (%) (Auto) 28.2 % (20.0-45.0) Monocytes (%) (Auto) 7.6 % (1.0-10.0) Eosinophils (%) (Auto) 2.3 % (0.0-3.0) Basophils (%) (Auto) 0.9 % (0.0-2.0) Sodium Level 140 MMOL/L (136-145) Potassium Level 4.0 MMOL/L (3.5-5.1) Chloride Level 105 MMOL/L (98-107) Carbon Dioxide Level 26 MMOL/L (21-32) Anion Gap 9 mmol/L (5-15) Blood Urea Nitrogen 23 mg/dL (7-18) H Creatinine 1.0 MG/DL (0.55-1.30) Estimat Glomerular Filtration Rate mL/min (>60) Glucose Level 105 MG/DL (74-106) Calcium Level 9.5 MG/DL (8.5-10.1) Triglycerides Level 80 MG/DL (30-150) Cholesterol Level 168 MG/DL (< 200) LDL Cholesterol 93 mg/dL (<100) HDL Cholesterol 60 MG/DL (40-60) Cholesterol/HDL Ratio 2.8 (3.3-4.4) L Intake and Output 10/29/18 10/30/18 19:00 07:00 Intake Total 720 ml Output Total 1000 ml 800 ml Balance -280 ml -800 ml Intake Oral 720 ml Output Urine Total 1000 ml 800 ml # Voids 2 Assessment/Plan Problem List: (1) Elevated troponin Assessment & Plan: See cardiology note. (2) Alzheimer's dementia (3) Closed right clavicular fracture (4) Multiple falls Status: not improved Steven Calhoun MD Oct 30, 2018 12:54
--- NOTE | 2018-10-30 13:10 | NUR ---
NURSE NOTES: Dr. Calhoun at nurse station, informed MD that per physical therapist noted patient "dragging right leg". Dr. Calhoun acknowledged, no new orders given at this time. Will continue to monitor patient.
--- NOTE | 2018-10-30 14:24 | Cardiology Progress Note ---
Assessment/Plan Problem List: (1) NSTEMI (non-ST elevated myocardial infarction) (2) Fall (3) Clavicle fracture Status: stable, progressing Status Narrative Mr Manzanares is stable from a cardiac standpoint. He had mild troponin elevation, possible demand ischemia, but no chest pain. EKG changes may be due to repolarization rather than ischemia. He had dizziness and falls. He is orthostatic to pulse, but not BP Assessment/Plan Continue medical therapy - asa. start statin and low dose b gokul Consider stress nuclear study to r/o ischemia Follow ortho VS. Subjective ROS Limited/Unobtainable: No Subjective Mr. Manzanares has r shoulder pain Objective Last 24 Hour Vital Signs Date Time Temp Pulse Resp B/P (MAP) Pulse Ox O2 Delivery O2 Flow Rate FiO2 10/30/18 12:00 63 10/30/18 12:00 97.3 60 20 143/84 (103) 97 10/30/18 09:00 72 108 112 10/30/18 09:00 Room Air 10/30/18 08:00 65 18 Room Air 21 10/30/18 08:00 98.6 66 20 155/87 (109) 98 10/30/18 08:00 64 10/30/18 04:00 52 10/30/18 04:00 97.5 61 20 140/79 (99) 96 10/30/18 01:00 61 63 70 10/30/18 00:00 62 10/30/18 00:00 97.0 62 20 140/72 (94) 98 10/29/18 21:00 Room Air 10/29/18 20:00 98.1 64 20 135/74 (94) 98 10/29/18 20:00 62 10/29/18 19:40 66 18 Room Air 21 10/29/18 16:00 98.8 64 20 140/75 (96) 98 10/29/18 16:00 61 10/29/18 15:00 64 66 73 General Appearance: WD/WN, no apparent distress, alert EENT: PERRL/EOMI Neck: no JVD Cardiovascular: normal rate, regular rhythm, no gallop/murmur Respiratory/Chest: lungs clear Abdomen: non tender, soft Extremities: no swelling Intake and Output 10/29/18 10/30/18 19:00 07:00 Intake Total 720 ml Output Total 1000 ml 800 ml Balance -280 ml -800 ml Intake Oral 720 ml Output Urine Total 1000 ml 800 ml # Voids 2 Laboratory Tests Test 10/29/18 20:15 10/30/18 06:55 Troponin I 0.099 ng/mL (0.000-0.056) White Blood Count 7.9 K/UL (4.8-10.8) Red Blood Count 4.06 M/UL (4.70-6.10) L Hemoglobin 14.0 G/DL (14.2-18.0) L Hematocrit 40.8 % (42.0-52.0) L Mean Corpuscular Volume 101 FL (80-99) H Mean Corpuscular Hemoglobin 34.6 PG (27.0-31.0) H Mean Corpuscular Hemoglobin Concent 34.5 G/DL (32.0-36.0) Red Cell Distribution Width 11.8 % (11.6-14.8) Platelet Count 196 K/UL (150-450) Mean Platelet Volume 8.1 FL (6.5-10.1) Neutrophils (%) (Auto) 60.9 % (45.0-75.0) Lymphocytes (%) (Auto) 28.2 % (20.0-45.0) Monocytes (%) (Auto) 7.6 % (1.0-10.0) Eosinophils (%) (Auto) 2.3 % (0.0-3.0) Basophils (%) (Auto) 0.9 % (0.0-2.0) Sodium Level 140 MMOL/L (136-145) Potassium Level 4.0 MMOL/L (3.5-5.1) Chloride Level 105 MMOL/L (98-107) Carbon Dioxide Level 26 MMOL/L (21-32) Anion Gap 9 mmol/L (5-15) Blood Urea Nitrogen 23 mg/dL (7-18) H Creatinine 1.0 MG/DL (0.55-1.30) Estimat Glomerular Filtration Rate mL/min (>60) Glucose Level 105 MG/DL (74-106) Calcium Level 9.5 MG/DL (8.5-10.1) Triglycerides Level 80 MG/DL (30-150) Cholesterol Level 168 MG/DL (< 200) LDL Cholesterol 93 mg/dL (<100) HDL Cholesterol 60 MG/DL (40-60) Cholesterol/HDL Ratio 2.8 (3.3-4.4) Astrid Ceron MD Oct 30, 2018 14:24
[2018-10-30 16:00] VITALS: BP 132/73
--- NOTE | 2018-10-30 16:05 | NUR ---
PT Note PT eva completed, treatment initiated. Patient has an unsteady gait and his RLE tends to lag behind the LLE during ambulation. Patient is a high risk for falls. CN and RN were notified. Patient needs PT services to increase his muscle strength and balance to improve his safety in mobility and gait. Recommend for patient to be DC'd to a SNF. Addendum: 10/30/18 at 1606 by DEJAN DONG PT Amended: Links added.
--- NOTE | 2018-10-30 19:01 | NUR ---
NURSE NOTES: Received report from GRETEL Lindsey. Patient is in bed awake, alert and oriented x3 with no signs of acute distress. Respiration even and non labored on room air. Vitals stable. IV line patent and intact. Bed in lowest position. Call light within reach. Will continue plan of care.
--- NOTE | 2018-10-30 19:02 | NUR ---
HAND-OFF: Report given to GRETEL Garcia.
[2018-10-30 20:00] VITALS: BP 146/78
[2018-10-30] MEDS: Metoprolol Tartrate 12.5mg TAB ORAL SCH (20:08)
[2018-10-31] VITALS: BP 138/83
[2018-10-31 04:00] VITALS: BP 128/77
--- NOTE | 2018-10-31 07:10 | NUR ---
HAND-OFF: Report given to GRETEL Laureano.
[2018-10-31 07:20] LABS: BASOPHILS % (AUTO) 0.9 % (0.0-2.0); HEMATOCRIT 43.1 % (42.0-52.0); HEMOGLOBIN 14.5 G/DL (14.2-18.0); LYMPHOCYTES % (AUTO) 31.2 % (20.0-45.0); MEAN CORPUSCULAR VOLUME 101 FL (80-99); MONOCYTES % (AUTO) 7.3 % (1.0-10.0); NEUTROPHILS % (AUTO) 56.6 % (45.0-75.0); PLATELET COUNT 192 K/UL (150-450); RED BLOOD COUNT 4.26 M/UL (4.70-6.10); WHITE BLOOD COUNT 7.6 K/UL (4.8-10.8)
[2018-10-31 07:25] LABS: ANION GAP 8 mmol/L (5-15); BLOOD UREA NITROGEN 27 mg/dL (7-18); CALCIUM 9.9 MG/DL (8.5-10.1); CARBON DIOXIDE 27 MMOL/L (21-32); CHLORIDE 104 MMOL/L (98-107); CREATININE 1.2 MG/DL (0.55-1.30); POTASSIUM 4.5 MMOL/L (3.5-5.1); SODIUM 139 MMOL/L (136-145)
--- NOTE | 2018-10-31 07:44 | NUR ---
NURSE NOTES: Pt in bed in low position, call light at bedside, pt in supine position, awake and oriented x2, doesnt know the date or why he is here, pt eating breakfast, bed alarm on, Iv intact and patent, pt denies pain, no s/s of distress or sob noted, will continue to monitor.
[2018-10-31 08:00] VITALS: BP 143/49
[2018-10-31] MEDS: Metoprolol Tartrate 12.5mg TAB ORAL SCH ×2 (09:20→21:01)
[2018-10-31] MEDS: Aspirin Baby 81mg ORAL SCH (09:21)
[2018-10-31] MEDS: Heparin 5000 units/ml inj SUBQ SCH ×2 (09:22→21:02)
[2018-10-31 12:00] VITALS: BP 141/72
[2018-10-31] MEDS ORDERED: LIPITOR10 MG ORAL (12:37)
[2018-10-31] MEDS ORDERED: LOPRESSOR25 M1 ORAL (12:37)
[2018-10-31] MEDS ORDERED: ASPIRIN81 MG ORAL (12:37)
--- NOTE | 2018-10-31 12:40 | Pulmonology Progress Note ---
Assessment/Plan Problems: (1) NSTEMI (non-ST elevated myocardial infarction) (2) Multiple injuries due to trauma (3) Multiple falls (4) Fracture, clavicle Assessment/Plan improving no new complains BP is controlled all noted f/u cardiology recommendations. Subjective ROS Limited/Unobtainable: No Constitutional: Reports: no symptoms HEENT: Repors: no symptoms Respiratory: Reports: no symptoms Allergies: Coded Allergies: No Known Allergies (Unverified , 10/26/18) Objective Last 24 Hour Vital Signs Date Time Temp Pulse Resp B/P (MAP) Pulse Ox O2 Delivery O2 Flow Rate FiO2 10/31/18 12:00 98.0 51 20 141/72 (95) 95 10/31/18 09:20 60 143/49 10/31/18 08:30 61 17 Room Air 21 10/31/18 08:10 Room Air 10/31/18 08:00 97.1 60 16 143/49 (80) 97 10/31/18 04:00 53 10/31/18 04:00 96.4 51 18 128/77 (94) 95 10/31/18 01:00 52 56 54 10/31/18 00:00 51 10/31/18 00:00 97.8 56 16 138/83 (101) 97 10/30/18 21:00 Room Air 10/30/18 20:08 73 146/78 10/30/18 20:00 97.9 73 16 146/78 (100) 94 10/30/18 20:00 70 10/30/18 19:32 72 18 Room Air 21 10/30/18 17:00 74 71 96 10/30/18 16:00 97.6 74 20 132/73 (92) 97 10/30/18 16:00 67 Intake and Output 10/30/18 10/31/18 19:00 07:00 Intake Total 750 ml Output Total 800 ml Balance -50 ml Intake Oral 750 ml Output Urine Total 800 ml # Voids 3 General Appearance: cachetic HEENT: normocephalic, atraumatic Respiratory/Chest: chest wall non-tender, lungs clear Cardiovascular: normal peripheral pulses, normal rate Abdomen: normal bowel sounds, soft, non tender Genitourinary: normal external genitalia Extremities: no clubbing Skin: no lesions 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 Laboratory Tests 10/31/18 06:05: White Blood Count 7.6, Red Blood Count 4.26L, Hemoglobin 14.5, Hematocrit 43.1, Mean Corpuscular Volume 101H, Mean Corpuscular Hemoglobin 34.1H, Mean Corpuscular Hemoglobin Concent 33.7, Red Cell Distribution Width 12.0, Platelet Count 192, Mean Platelet Volume 8.0, Neutrophils (%) (Auto) 56.6, Lymphocytes (% ) (Auto) 31.2, Monocytes (%) (Auto) 7.3, Eosinophils (%) (Auto) 4.0H, Basophils (%) (Auto) 0.9, Sodium Level 139, Potassium Level 4.5, Chloride Level 104, Carbon Dioxide Level 27, Anion Gap 8, Blood Urea Nitrogen 27H, Creatinine 1.2, Estimat Glomerular Filtration Rate , Glucose Level 102, Calcium Level 9.9 Current Medications Medications (Trade) Dose Ordered Sig/Oscar Route PRN Reason Start Time Stop Time Status Last Admin Dose Admin Acetaminophen (Tylenol) 650 mg Q4H PRN ORAL T>100.5 10/28/18 12:15 11/26/18 20:14 Albuterol/ Ipratropium (Albuterol/ Ipratropium) 3 ml Q4H PRN HHN Shortness of Breath 10/30/18 10:45 11/03/18 10:44 Aspirin (ASA) 162 mg DAILY ORAL 10/29/18 09:00 11/27/18 08:59 10/31/18 09:21 Atorvastatin Calcium (Lipitor) 10 mg BEDTIME ORAL 10/30/18 21:00 11/29/18 20:59 10/30/18 20:08 Diltiazem HCl (Cardizem) 10 mg Q1H PRN IV heart rate more than 120 BPM 10/28/18 12:15 11/26/18 20:14 Enalaprilat (Vasotec) 2.5 mg Q6H PRN IV sbp more than 160mmHg 10/28/18 13:00 11/26/18 12:59 Heparin Sodium (Porcine) (Heparin 5000 units/ml) 5,000 units EVERY 12 HOURS SUBQ 10/28/18 21:00 11/26/18 20:59 10/31/18 09:22 Ketorolac Tromethamine (Toradol 30mg) 30 mg Q6H PRN IV Moderate Pain (Pain Scale 4-6) 10/28/18 13:00 11/02/18 12:59 Metoprolol Tartrate (Lopressor) 12.5 mg Q12HR ORAL 10/30/18 21:00 11/29/18 20:59 10/31/18 09:20 Morphine Sulfate (Morphine Sulfate) 2 mg Q4H PRN IVP Severe Pain (Pain Scale 7-10) 10/28/18 13:00 11/03/18 12:59 Nitroglycerin (Ntg) 0.4 mg Q5M PRN SL Prn Chest Pain 10/28/18 12:15 11/26/18 20:14 Ondansetron HCl (Zofran) 4 mg Q6H PRN IVP Nausea & Vomiting 10/28/18 13:00 11/26/18 12:59 Polyethylene Glycol (Miralax) 17 gm DAILYPRN PRN ORAL Constipation 10/28/18 13:00 11/26/18 12:59 Temazepam (Restoril) 15 mg HSPRN PRN ORAL Insomnia 10/28/18 21:00 11/03/18 20:59 Bushra Payne MD Oct 31, 2018 12:40
--- NOTE | 2018-10-31 14:02 | Internal Med Progress Note ---
Subjective Date of Service: Oct 31, 2018 Physician Name Steven Calhoun Attending Physician Curry Hoffman MD Current Medications Medications (Trade) Dose Ordered Sig/Oscar Route PRN Reason Start Time Stop Time Status Last Admin Dose Admin Acetaminophen (Tylenol) 650 mg Q4H PRN ORAL T>100.5 10/28/18 12:15 11/26/18 20:14 Albuterol/ Ipratropium (Albuterol/ Ipratropium) 3 ml Q4H PRN HHN Shortness of Breath 10/30/18 10:45 11/03/18 10:44 Aspirin (ASA) 162 mg DAILY ORAL 10/29/18 09:00 11/27/18 08:59 10/31/18 09:21 Atorvastatin Calcium (Lipitor) 10 mg BEDTIME ORAL 10/30/18 21:00 11/29/18 20:59 10/30/18 20:08 Diltiazem HCl (Cardizem) 10 mg Q1H PRN IV heart rate more than 120 BPM 10/28/18 12:15 11/26/18 20:14 Enalaprilat (Vasotec) 2.5 mg Q6H PRN IV sbp more than 160mmHg 10/28/18 13:00 11/26/18 12:59 Heparin Sodium (Porcine) (Heparin 5000 units/ml) 5,000 units EVERY 12 HOURS SUBQ 10/28/18 21:00 11/26/18 20:59 10/31/18 09:22 Ketorolac Tromethamine (Toradol 30mg) 30 mg Q6H PRN IV Moderate Pain (Pain Scale 4-6) 10/28/18 13:00 11/02/18 12:59 Metoprolol Tartrate (Lopressor) 12.5 mg Q12HR ORAL 10/30/18 21:00 11/29/18 20:59 10/31/18 09:20 Morphine Sulfate (Morphine Sulfate) 2 mg Q4H PRN IVP Severe Pain (Pain Scale 7-10) 10/28/18 13:00 11/03/18 12:59 Nitroglycerin (Ntg) 0.4 mg Q5M PRN SL Prn Chest Pain 10/28/18 12:15 11/26/18 20:14 Ondansetron HCl (Zofran) 4 mg Q6H PRN IVP Nausea & Vomiting 10/28/18 13:00 11/26/18 12:59 Polyethylene Glycol (Miralax) 17 gm DAILYPRN PRN ORAL Constipation 10/28/18 13:00 11/26/18 12:59 Temazepam (Restoril) 15 mg HSPRN PRN ORAL Insomnia 10/28/18 21:00 11/03/18 20:59 Allergies: Coded Allergies: No Known Allergies (Unverified , 10/26/18) ROS Limited/Unobtainable: No Constitutional: Reports: no symptoms HEENT: Reports: no symptoms Cardiovascular: Reports: no symptoms Respiratory: Reports: no symptoms Gastrointestinal/Abdominal: Reports: no symptoms Genitourinary: Reports: no symptoms Neurologic/Psychiatric: Reports: no symptoms Subjective 73 YO M with previous right clavicle fracture admitted with elevated troponin. Cover for Int Med-Dr Hoffman. Objective Last Vital Signs Date Time Temp Pulse Resp B/P (MAP) Pulse Ox O2 Delivery O2 Flow Rate FiO2 10/31/18 12:00 98.0 51 20 141/72 (95) 95 10/31/18 08:30 Room Air 21 Laboratory Tests Test 10/31/18 06:05 White Blood Count 7.6 K/UL (4.8-10.8) Red Blood Count 4.26 M/UL (4.70-6.10) L Hemoglobin 14.5 G/DL (14.2-18.0) Hematocrit 43.1 % (42.0-52.0) Mean Corpuscular Volume 101 FL (80-99) H Mean Corpuscular Hemoglobin 34.1 PG (27.0-31.0) H Mean Corpuscular Hemoglobin Concent 33.7 G/DL (32.0-36.0) Red Cell Distribution Width 12.0 % (11.6-14.8) Platelet Count 192 K/UL (150-450) Mean Platelet Volume 8.0 FL (6.5-10.1) Neutrophils (%) (Auto) 56.6 % (45.0-75.0) Lymphocytes (%) (Auto) 31.2 % (20.0-45.0) Monocytes (%) (Auto) 7.3 % (1.0-10.0) Eosinophils (%) (Auto) 4.0 % (0.0-3.0) H Basophils (%) (Auto) 0.9 % (0.0-2.0) Sodium Level 139 MMOL/L (136-145) Potassium Level 4.5 MMOL/L (3.5-5.1) Chloride Level 104 MMOL/L (98-107) Carbon Dioxide Level 27 MMOL/L (21-32) Anion Gap 8 mmol/L (5-15) Blood Urea Nitrogen 27 mg/dL (7-18) H Creatinine 1.2 MG/DL (0.55-1.30) Estimat Glomerular Filtration Rate mL/min (>60) Glucose Level 102 MG/DL (74-106) Calcium Level 9.9 MG/DL (8.5-10.1) Intake and Output 10/30/18 10/31/18 19:00 07:00 Intake Total 750 ml Output Total 800 ml Balance -50 ml Intake Oral 750 ml Output Urine Total 800 ml # Voids 3 Objective General Appearance: WD/WN, no apparent distress, alert EENT: PERRL/EOMI, normal ENT inspection Neck: non-tender, normal alignment, supple, normal inspection Cardiovascular: normal peripheral pulses, normal rate, regular rhythm, no gallop/murmur, no JVD Respiratory/Chest: chest wall non-tender, lungs clear, normal breath sounds, no respiratory distress, no accessory muscle use Abdomen: normal bowel sounds, non tender, soft, no organomegaly, no mass Extremities: normal range of motion, non-tender 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 (2) Alzheimer's dementia (3) Closed right clavicular fracture (4) Multiple falls (5) NSTEMI (non-ST elevated myocardial infarction) Assessment & Plan: ?demand ischemia? See cariology note. Status: progressing Assessment/Plan Discharge planning Steven Calhoun MD Oct 31, 2018 14:02
--- NOTE | 2018-10-31 14:15 | NUR ---
*-* DISCHARGE PLANNING*-* PATIENT HAS BEEN REFERRED TO: [facility] P:[phone] F:[phone]
--- NOTE | 2018-10-31 14:33 | NUR ---
NURSE NOTES: Spoke to pt regarding rehab/snf placement, pt agrees to go.
--- NOTE | 2018-10-31 14:59 | NUR ---
*-* INSURANCE*-* ALL CLINICALS AND [facility] F:[phone] TRK#[id number]
[2018-10-31 16:00] VITALS: BP 128/63
--- NOTE | 2018-10-31 19:35 | NUR ---
NURSE NOTES: Received pt. and report from GRETEL Laureano. Observe pt. resting in bed and watching TV. residential monitor is in placed, IV site is intact, asymptomatic, and patent. Bed is in the lowest position and locked, bedside commode present, call light within reach. No acute distress noted at this time. Will continue plan of care.
--- NOTE | 2018-10-31 19:45 | NUR ---
HAND-OFF: Report given to Raissa Peck.
[2018-10-31 20:00] VITALS: BP 157/120
[2018-11-01] VITALS: BP 143/78
[2018-11-01 04:00] VITALS: BP 141/76
[2018-11-01 07:09] LABS: ANION GAP 8 mmol/L (5-15); BLOOD UREA NITROGEN 28 mg/dL (7-18); CALCIUM 9.8 MG/DL (8.5-10.1); CARBON DIOXIDE 28 MMOL/L (21-32); CHLORIDE 104 MMOL/L (98-107); CREATININE 1.2 MG/DL (0.55-1.30); SODIUM 140 MMOL/L (136-145)
[2018-11-01 07:24] LABS: EOSINOPHILS % (AUTO) 3.9 % (0.0-3.0); HEMATOCRIT 45.9 % (42.0-52.0); HEMOGLOBIN 15.6 G/DL (14.2-18.0); LYMPHOCYTES % (AUTO) 28.4 % (20.0-45.0); MEAN CORPUSCULAR VOLUME 101 FL (80-99); MONOCYTES % (AUTO) 5.8 % (1.0-10.0); NEUTROPHILS % (AUTO) 60.9 % (45.0-75.0); PLATELET COUNT 215 K/UL (150-450); RED BLOOD COUNT 4.52 M/UL (4.70-6.10); RED CELL DISTRIBUTION WIDTH 11.9 % (11.6-14.8); WHITE BLOOD COUNT 8.7 K/UL (4.8-10.8)
--- NOTE | 2018-11-01 07:25 | NUR ---
NURSE NOTES: Received report from GRETEL Haji. Patient was setup to eat breakfast. ekg monitor tech is in placed. Patient is sinus olinda at 59. Patient is breathing on room air. IV site is intact, asymptomatic, and patent. Bed is in the lowest position and locked, bedside commode present, call light within reach. No acute distress noted at this time. Will continue plan of care.
--- NOTE | 2018-11-01 07:33 | NUR ---
HAND-OFF: Report given to GRETEL Salazar.
[2018-11-01 08:57] VITALS: BP 147/84
[2018-11-01] MEDS: Metoprolol Tartrate 12.5mg TAB ORAL SCH ×2 (09:03→21:00)
[2018-11-01] MEDS: Aspirin Baby 81mg ORAL SCH (09:03)
[2018-11-01] MEDS: Heparin 5000 units/ml inj SUBQ SCH ×2 (09:07→21:30)
--- NOTE | 2018-11-01 10:00 | NUR ---
NURSE NOTES: Notified Dr. Payne about sinus olinda rhythm. Dr. Payne is aware.
--- NOTE | 2018-11-01 11:06 | Pulmonology Progress Note ---
Assessment/Plan Problems: (1) NSTEMI (non-ST elevated myocardial infarction) (2) Multiple injuries due to trauma (3) Multiple falls (4) Fracture, clavicle Assessment/Plan still episodes of bradycardia improving physical therapy note appreciated, they recommend pt needs to go to a assisted. no new complains BP is controlled all noted f/u cardiology recommendations. dc planning pt/ot Subjective ROS Limited/Unobtainable: No Constitutional: Reports: no symptoms HEENT: Repors: no symptoms Allergies: Coded Allergies: No Known Allergies (Unverified , 10/26/18) Objective Last 24 Hour Vital Signs Date Time Temp Pulse Resp B/P (MAP) Pulse Ox O2 Delivery O2 Flow Rate FiO2 11/01/18 09:08 Room Air 11/01/18 09:03 60 147/84 11/01/18 08:57 97.0 60 18 147/84 (105) 96 11/01/18 07:15 47 11/01/18 04:00 98.0 51 18 141/76 (97) 95 11/01/18 04:00 47 11/01/18 03:03 60 17 Room Air 21 11/01/18 00:00 97.3 59 18 143/78 (99) 95 11/01/18 00:00 51 10/31/18 21:01 54 157/120 10/31/18 21:00 Room Air 10/31/18 20:00 54 10/31/18 20:00 97.6 54 18 157/120 (132) 96 10/31/18 17:15 55 10/31/18 16:00 98.8 55 20 128/63 (84) 96 10/31/18 12:11 55 10/31/18 12:00 98.0 51 20 141/72 (95) 95 Intake and Output 10/31/18 11/01/18 19:00 07:00 Intake Total 440 ml Output Total 200 ml Balance 240 ml Intake Oral 440 ml Output Urine Total 200 ml # Voids 2 1 # Bowel Movements 1 General Appearance: WD/WN HEENT: normocephalic, atraumatic Respiratory/Chest: chest wall non-tender, lungs clear Cardiovascular: normal peripheral pulses, normal rate Abdomen: normal bowel sounds, soft, non tender Genitourinary: normal external genitalia Skin: no rash 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 Lymphatic: no neck adenopathy Musculoskeletal: atrophy Laboratory Tests 11/01/18 05:54: White Blood Count 8.7, Red Blood Count 4.52L, Hemoglobin 15.6, Hematocrit 45.9, Mean Corpuscular Volume 101H, Mean Corpuscular Hemoglobin 34.4H, Mean Corpuscular Hemoglobin Concent 34.0, Red Cell Distribution Width 11.9, Platelet Count 215, Mean Platelet Volume 7.2, Neutrophils (%) (Auto) 60.9, Lymphocytes (% ) (Auto) 28.4, Monocytes (%) (Auto) 5.8, Eosinophils (%) (Auto) 3.9H, Basophils (%) (Auto) 1.0, Sodium Level 140, Potassium Level 4.0, Chloride Level 104, Carbon Dioxide Level 28, Anion Gap 8, Blood Urea Nitrogen 28H, Creatinine 1.2, Estimat Glomerular Filtration Rate , Glucose Level 98, Calcium Level 9.8 Current Medications Medications (Trade) Dose Ordered Sig/Oscar Route PRN Reason Start Time Stop Time Status Last Admin Dose Admin Acetaminophen (Tylenol) 650 mg Q4H PRN ORAL T>100.5 10/28/18 12:15 11/26/18 20:14 Albuterol/ Ipratropium (Albuterol/ Ipratropium) 3 ml Q4H PRN HHN Shortness of Breath 10/30/18 10:45 11/03/18 10:44 Aspirin (ASA) 162 mg DAILY ORAL 10/29/18 09:00 11/27/18 08:59 11/01/18 09:03 Atorvastatin Calcium (Lipitor) 10 mg BEDTIME ORAL 10/30/18 21:00 11/29/18 20:59 10/31/18 21:00 Diltiazem HCl (Cardizem) 10 mg Q1H PRN IV heart rate more than 120 BPM 10/28/18 12:15 11/26/18 20:14 Enalaprilat (Vasotec) 2.5 mg Q6H PRN IV sbp more than 160mmHg 10/28/18 13:00 11/26/18 12:59 Heparin Sodium (Porcine) (Heparin 5000 units/ml) 5,000 units EVERY 12 HOURS SUBQ 10/28/18 21:00 11/26/18 20:59 11/01/18 09:07 Ketorolac Tromethamine (Toradol 30mg) 30 mg Q6H PRN IV Moderate Pain (Pain Scale 4-6) 10/28/18 13:00 11/02/18 12:59 Metoprolol Tartrate (Lopressor) 12.5 mg Q12HR ORAL 10/30/18 21:00 11/29/18 20:59 11/01/18 09:03 Morphine Sulfate (Morphine Sulfate) 2 mg Q4H PRN IVP Severe Pain (Pain Scale 7-10) 10/28/18 13:00 11/03/18 12:59 Nitroglycerin (Ntg) 0.4 mg Q5M PRN SL Prn Chest Pain 10/28/18 12:15 11/26/18 20:14 Ondansetron HCl (Zofran) 4 mg Q6H PRN IVP Nausea & Vomiting 10/28/18 13:00 11/26/18 12:59 Polyethylene Glycol (Miralax) 17 gm DAILYPRN PRN ORAL Constipation 10/28/18 13:00 11/26/18 12:59 Temazepam (Restoril) 15 mg HSPRN PRN ORAL Insomnia 10/28/18 21:00 11/03/18 20:59 Bushra Payne MD Nov 01, 2018 11:05
--- NOTE | 2018-11-01 11:31 | Cardiology Progress Note ---
Assessment/Plan Assessment/Plan 1. Abnormal cardiac enzymes. 2. Status post nonsyncopal fall with clavicular fracture. 3. Clavicular fracture. 4. Abnormal electrocardiogram. 5. Hypertension. 6. Hyperlipidemia. 7. MOderate LV hypertrophy 8. Diastolic dysfunction no peak or dang on the cardiac enzyme ekg unchanged echo normal lv systolic dysfunction with moderate LVH which is the likely cause of the st /t changes ' no sx to suggest coronary syndrome at some point in future will need perfusion imaging needs to fu with pmd or fu with me to arrange the test as outpt Subjective Cardiovascular: Reports: other - shoulder pain rightside ; Denies: chest pain, irregular heart rate, lightheadedness Respiratory: Denies: shortness of breath Gastrointestinal/Abdominal: Denies: abdominal pain Genitourinary: Denies: burning Objective Last 24 Hour Vital Signs Date Time Temp Pulse Resp B/P (MAP) Pulse Ox O2 Delivery O2 Flow Rate FiO2 11/01/18 09:08 Room Air 11/01/18 09:03 60 147/84 11/01/18 08:57 97.0 60 18 147/84 (105) 96 11/01/18 07:15 47 11/01/18 04:00 98.0 51 18 141/76 (97) 95 11/01/18 04:00 47 11/01/18 03:03 60 17 Room Air 21 11/01/18 00:00 97.3 59 18 143/78 (99) 95 11/01/18 00:00 51 10/31/18 21:01 54 157/120 10/31/18 21:00 Room Air 10/31/18 20:00 54 10/31/18 20:00 97.6 54 18 157/120 (132) 96 10/31/18 17:15 55 10/31/18 16:00 98.8 55 20 128/63 (84) 96 10/31/18 12:11 55 10/31/18 12:00 98.0 51 20 141/72 (95) 95 General Appearance: alert Neck: supple Cardiovascular: normal rate, regular rhythm Respiratory/Chest: chest wall non-tender, lungs clear Abdomen: normal bowel sounds, non tender, soft Extremities: non-tender, no swelling Intake and Output 10/31/18 11/01/18 19:00 07:00 Intake Total 440 ml Output Total 200 ml Balance 240 ml Intake Oral 440 ml Output Urine Total 200 ml # Voids 2 1 # Bowel Movements 1 Laboratory Tests Test 11/01/18 05:54 White Blood Count 8.7 K/UL (4.8-10.8) Red Blood Count 4.52 M/UL (4.70-6.10) L Hemoglobin 15.6 G/DL (14.2-18.0) Hematocrit 45.9 % (42.0-52.0) Mean Corpuscular Volume 101 FL (80-99) H Mean Corpuscular Hemoglobin 34.4 PG (27.0-31.0) H Mean Corpuscular Hemoglobin Concent 34.0 G/DL (32.0-36.0) Red Cell Distribution Width 11.9 % (11.6-14.8) Platelet Count 215 K/UL (150-450) Mean Platelet Volume 7.2 FL (6.5-10.1) Neutrophils (%) (Auto) 60.9 % (45.0-75.0) Lymphocytes (%) (Auto) 28.4 % (20.0-45.0) Monocytes (%) (Auto) 5.8 % (1.0-10.0) Eosinophils (%) (Auto) 3.9 % (0.0-3.0) H Basophils (%) (Auto) 1.0 % (0.0-2.0) Sodium Level 140 MMOL/L (136-145) Potassium Level 4.0 MMOL/L (3.5-5.1) Chloride Level 104 MMOL/L (98-107) Carbon Dioxide Level 28 MMOL/L (21-32) Anion Gap 8 mmol/L (5-15) Blood Urea Nitrogen 28 mg/dL (7-18) H Creatinine 1.2 MG/DL (0.55-1.30) Estimat Glomerular Filtration Rate mL/min (>60) Glucose Level 98 MG/DL (74-106) Calcium Level 9.8 MG/DL (8.5-10.1) Jaiden Lee MD Nov 01, 2018 11:31
[2018-11-01 11:55] VITALS: BP 140/82
--- NOTE | 2018-11-01 13:00 | NUR ---
NURSE NOTES: @ 13:00 Paged [phone] MS. Aleksandr CM to make attempt to f/u with placement to rehab. Awaiting call back.
--- NOTE | 2018-11-01 15:19 | Internal Med Progress Note ---
Subjective Date of Service: Nov 01, 2018 Physician Name Stveen Calhoun Attending Physician Curry Hoffman MD Current Medications Medications (Trade) Dose Ordered Sig/Oscar Route PRN Reason Start Time Stop Time Status Last Admin Dose Admin Acetaminophen (Tylenol) 650 mg Q4H PRN ORAL T>100.5 10/28/18 12:15 11/26/18 20:14 Albuterol/ Ipratropium (Albuterol/ Ipratropium) 3 ml Q4H PRN HHN Shortness of Breath 10/30/18 10:45 11/03/18 10:44 Aspirin (ASA) 162 mg DAILY ORAL 10/29/18 09:00 11/27/18 08:59 11/01/18 09:03 Atorvastatin Calcium (Lipitor) 10 mg BEDTIME ORAL 10/30/18 21:00 11/29/18 20:59 10/31/18 21:00 Diltiazem HCl (Cardizem) 10 mg Q1H PRN IV heart rate more than 120 BPM 10/28/18 12:15 11/26/18 20:14 Enalaprilat (Vasotec) 2.5 mg Q6H PRN IV sbp more than 160mmHg 10/28/18 13:00 11/26/18 12:59 Heparin Sodium (Porcine) (Heparin 5000 units/ml) 5,000 units EVERY 12 HOURS SUBQ 10/28/18 21:00 11/26/18 20:59 11/01/18 09:07 Ketorolac Tromethamine (Toradol 30mg) 30 mg Q6H PRN IV Moderate Pain (Pain Scale 4-6) 10/28/18 13:00 11/02/18 12:59 Metoprolol Tartrate (Lopressor) 12.5 mg Q12HR ORAL 10/30/18 21:00 11/29/18 20:59 11/01/18 09:03 Morphine Sulfate (Morphine Sulfate) 2 mg Q4H PRN IVP Severe Pain (Pain Scale 7-10) 10/28/18 13:00 11/03/18 12:59 Nitroglycerin (Ntg) 0.4 mg Q5M PRN SL Prn Chest Pain 10/28/18 12:15 11/26/18 20:14 Ondansetron HCl (Zofran) 4 mg Q6H PRN IVP Nausea & Vomiting 10/28/18 13:00 11/26/18 12:59 Polyethylene Glycol (Miralax) 17 gm DAILYPRN PRN ORAL Constipation 10/28/18 13:00 11/26/18 12:59 Temazepam (Restoril) 15 mg HSPRN PRN ORAL Insomnia 10/28/18 21:00 11/03/18 20:59 Allergies: Coded Allergies: No Known Allergies (Unverified , 10/26/18) ROS Limited/Unobtainable: No Constitutional: Reports: no symptoms HEENT: Reports: no symptoms Cardiovascular: Reports: no symptoms Respiratory: Reports: no symptoms Gastrointestinal/Abdominal: Reports: no symptoms Genitourinary: Reports: no symptoms Neurologic/Psychiatric: Reports: no symptoms Subjective 73 YO M with previous right clavicle fracture admitted with elevated troponin. Cover for Int Med-Dr Hoffman. Await acceptance to Rehab on [facility] Objective Last Vital Signs Date Time Temp Pulse Resp B/P (MAP) Pulse Ox O2 Delivery O2 Flow Rate FiO2 11/01/18 12:37 46 11/01/18 11:55 97.7 18 140/82 (101) 96 11/01/18 09:08 Room Air 11/01/18 03:03 21 Laboratory Tests Test 11/01/18 05:54 White Blood Count 8.7 K/UL (4.8-10.8) Red Blood Count 4.52 M/UL (4.70-6.10) L Hemoglobin 15.6 G/DL (14.2-18.0) Hematocrit 45.9 % (42.0-52.0) Mean Corpuscular Volume 101 FL (80-99) H Mean Corpuscular Hemoglobin 34.4 PG (27.0-31.0) H Mean Corpuscular Hemoglobin Concent 34.0 G/DL (32.0-36.0) Red Cell Distribution Width 11.9 % (11.6-14.8) Platelet Count 215 K/UL (150-450) Mean Platelet Volume 7.2 FL (6.5-10.1) Neutrophils (%) (Auto) 60.9 % (45.0-75.0) Lymphocytes (%) (Auto) 28.4 % (20.0-45.0) Monocytes (%) (Auto) 5.8 % (1.0-10.0) Eosinophils (%) (Auto) 3.9 % (0.0-3.0) H Basophils (%) (Auto) 1.0 % (0.0-2.0) Sodium Level 140 MMOL/L (136-145) Potassium Level 4.0 MMOL/L (3.5-5.1) Chloride Level 104 MMOL/L (98-107) Carbon Dioxide Level 28 MMOL/L (21-32) Anion Gap 8 mmol/L (5-15) Blood Urea Nitrogen 28 mg/dL (7-18) H Creatinine 1.2 MG/DL (0.55-1.30) Estimat Glomerular Filtration Rate mL/min (>60) Glucose Level 98 MG/DL (74-106) Calcium Level 9.8 MG/DL (8.5-10.1) Intake and Output 10/31/18 11/01/18 18:59 06:59 Intake Total 440 ml Output Total 200 ml Balance 240 ml Intake Oral 440 ml Output Urine Total 200 ml # Voids 2 1 # Bowel Movements 1 Objective General Appearance: WD/WN, no apparent distress, alert EENT: PERRL/EOMI, normal ENT inspection Neck: non-tender, normal alignment, supple, normal inspection Cardiovascular: normal peripheral pulses, normal rate, regular rhythm, no gallop/murmur, no JVD Respiratory/Chest: chest wall non-tender, lungs clear, normal breath sounds, no respiratory distress, no accessory muscle use Abdomen: normal bowel sounds, non tender, soft, no organomegaly, no mass Extremities: normal range of motion, non-tender 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 (2) Alzheimer's dementia (3) Closed right clavicular fracture (4) Multiple falls (5) NSTEMI (non-ST elevated myocardial infarction) Assessment & Plan: ?demand ischemia? See cariology note. Assessment/Plan Discharge planning: Rehab on [place] [facility] Steven Calhoun MD Nov 01, 2018 15:19
[2018-11-01 16:00] VITALS: BP 133/79
--- NOTE | 2018-11-01 19:15 | NUR ---
NURSE NOTES: Received pt. and report from GRETEL Salazar. Observe pt. resting in bed and watching TV. environmental monitoring specialist is in placed, IV site is intact, asymptomatic, and patent. Bed is in the lowest position and locked, fall precaution noted, bedside commode present, call light within reach. No acute distress noted at this time. Will continue plan of care.
--- NOTE | 2018-11-01 19:26 | NUR ---
HAND-OFF: Report given to GRETEL Haji.
[2018-11-01 20:00] VITALS: BP 139/66
--- NOTE | 2018-11-01 21:34 | NUR ---
NURSE NOTES: Held Lopressor due to low HR of 54. BP 139/66. Pt. goes bradycardic through out the night.
[2018-11-02] VITALS (7 sets, daily range): BP systolic 117–146; BP diastolic 62–73
[2018-11-02 07:13] LABS: BASOPHILS % (AUTO) 0.9 % (0.0-2.0); HEMATOCRIT 43.7 % (42.0-52.0); HEMOGLOBIN 14.9 G/DL (14.2-18.0); LYMPHOCYTES % (AUTO) 27.5 % (20.0-45.0); MEAN CORPUSCULAR VOLUME 102 FL (80-99); MONOCYTES % (AUTO) 5.8 % (1.0-10.0); NEUTROPHILS % (AUTO) 61.7 % (45.0-75.0); PLATELET COUNT 210 K/UL (150-450); RED CELL DISTRIBUTION WIDTH 12.1 % (11.6-14.8); WHITE BLOOD COUNT 9.5 K/UL (4.8-10.8)
[2018-11-02 07:17] LABS: ANION GAP 9 mmol/L (5-15); BLOOD UREA NITROGEN 34 mg/dL (7-18); CALCIUM 9.7 MG/DL (8.5-10.1); CARBON DIOXIDE 27 MMOL/L (21-32); CHLORIDE 105 MMOL/L (98-107); CREATININE 1.2 MG/DL (0.55-1.30); POTASSIUM 4.5 MMOL/L (3.5-5.1); SODIUM 140 MMOL/L (136-145)
--- NOTE | 2018-11-02 07:50 | NUR ---
HAND-OFF: Report given to GRETEL Salazar.
--- NOTE | 2018-11-02 08:14 | NUR ---
NURSE NOTES: Received report from GRETEL Haji. Patient was setup to eat breakfast. enterprise integration developer is in placed. Patient is sinus olinda Patient is breathing on room air. IV site is intact, asymptomatic, and patent. Bed is in the lowest position and locked, bedside commode present, call light within reach. No acute distress noted at this time. Will continue plan of care. Addendum: 11/02/18 at 0816 by Matrin Green RN Esteban Kendall, denzel at bedside, states to wish to speak with co-worker about friend's discharge plan to rehab. Will contact assistant case manager/ social professionals. Phone number:
[2018-11-02] MEDS: Metoprolol Tartrate 12.5mg TAB ORAL SCH ×2 (09:06→21:00)
[2018-11-02] MEDS: Aspirin Baby 81mg ORAL SCH (09:06)
[2018-11-02] MEDS: Heparin 5000 units/ml inj SUBQ SCH ×2 (09:11→21:00)
--- NOTE | 2018-11-02 12:03 | Pulmonology Progress Note ---
Assessment/Plan Problems: (1) NSTEMI (non-ST elevated myocardial infarction) (2) Multiple injuries due to trauma (3) Multiple falls (4) Fracture, clavicle Assessment/Plan olinda while sleeping at 44, heart rate at 66 while awake. improving physical therapy note appreciated, they recommend pt needs to go to a detention. no new complains BP is controlled all noted f/u cardiology recommendations. dc planning pt/ot Subjective ROS Limited/Unobtainable: No Constitutional: Reports: no symptoms HEENT: Repors: no symptoms Respiratory: Reports: no symptoms Cardiovascular: Reports: no symptoms Allergies: Coded Allergies: No Known Allergies (Unverified , 10/26/18) Objective Last 24 Hour Vital Signs Date Time Temp Pulse Resp B/P (MAP) Pulse Ox O2 Delivery O2 Flow Rate FiO2 11/02/18 09:06 69 146/62 11/02/18 09:00 Room Air 11/02/18 08:45 59 18 Room Air 21 11/02/18 08:17 97.4 69 20 146/62 (90) 98 11/02/18 08:00 63 11/02/18 04:00 51 11/02/18 04:00 97.5 53 18 136/73 (94) 97 11/02/18 00:00 97.2 58 18 137/68 (91) 96 11/02/18 00:00 52 11/01/18 21:07 67 18 Room Air 21 11/01/18 21:00 54 139/66 11/01/18 21:00 Room Air 11/01/18 20:00 56 11/01/18 20:00 96.6 54 18 139/66 (90) 96 11/01/18 16:00 98.0 68 18 133/79 (97) 98 11/01/18 15:46 44 11/01/18 12:37 46 Intake and Output 11/01/18 11/02/18 19:00 07:00 Intake Total 820 ml 200 ml Balance 820 ml 200 ml Intake Oral 820 ml 200 ml # Voids 6 3 # Bowel Movements 1 1 General Appearance: WD/WN HEENT: normocephalic, atraumatic Respiratory/Chest: chest wall non-tender, normal breath sounds Cardiovascular: normal peripheral pulses, normal rate Abdomen: normal bowel sounds, soft, non tender Skin: no rash, no ulcers Neurologic/Psychiatric: auto 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 II-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 grossly normal, no motor/sensory deficits Laboratory Tests 11/02/18 05:00: White Blood Count 9.5, Red Blood Count 4.30L, Hemoglobin 14.9, Hematocrit 43.7, Mean Corpuscular Volume 102H, Mean Corpuscular Hemoglobin 34.7H, Mean Corpuscular Hemoglobin Concent 34.2, Red Cell Distribution Width 12.1, Platelet Count 210, Mean Platelet Volume 6.7, Neutrophils (%) (Auto) 61.7, Lymphocytes (% ) (Auto) 27.5, Monocytes (%) (Auto) 5.8, Eosinophils (%) (Auto) 4.0H, Basophils (%) (Auto) 0.9, Sodium Level 140, Potassium Level 4.5, Chloride Level 105, Carbon Dioxide Level 27, Anion Gap 9, Blood Urea Nitrogen 34H, Creatinine 1.2, Estimat Glomerular Filtration Rate , Glucose Level 101, Calcium Level 9.7 Current Medications Medications (Trade) Dose Ordered Sig/Oscar Route PRN Reason Start Time Stop Time Status Last Admin Dose Admin Acetaminophen (Tylenol) 650 mg Q4H PRN ORAL T>100.5 10/28/18 12:15 11/26/18 20:14 Albuterol/ Ipratropium (Albuterol/ Ipratropium) 3 ml Q4H PRN HHN Shortness of Breath 10/30/18 10:45 11/03/18 10:44 Aspirin (ASA) 162 mg DAILY ORAL 10/29/18 09:00 11/27/18 08:59 11/02/18 09:06 Atorvastatin Calcium (Lipitor) 10 mg BEDTIME ORAL 10/30/18 21:00 11/29/18 20:59 11/01/18 21:29 Diltiazem HCl (Cardizem) 10 mg Q1H PRN IV heart rate more than 120 BPM 10/28/18 12:15 11/26/18 20:14 Enalaprilat (Vasotec) 2.5 mg Q6H PRN IV sbp more than 160mmHg 10/28/18 13:00 11/26/18 12:59 Heparin Sodium (Porcine) (Heparin 5000 units/ml) 5,000 units EVERY 12 HOURS SUBQ 10/28/18 21:00 11/26/18 20:59 11/02/18 09:11 Ketorolac Tromethamine (Toradol 30mg) 30 mg Q6H PRN IV Moderate Pain (Pain Scale 4-6) 10/28/18 13:00 11/02/18 12:59 Metoprolol Tartrate (Lopressor) 12.5 mg Q12HR ORAL 10/30/18 21:00 11/29/18 20:59 11/02/18 09:06 Morphine Sulfate (Morphine Sulfate) 2 mg Q4H PRN IVP Severe Pain (Pain Scale 7-10) 10/28/18 13:00 11/03/18 12:59 Nitroglycerin (Ntg) 0.4 mg Q5M PRN SL Prn Chest Pain 10/28/18 12:15 11/26/18 20:14 Ondansetron HCl (Zofran) 4 mg Q6H PRN IVP Nausea & Vomiting 10/28/18 13:00 11/26/18 12:59 Polyethylene Glycol (Miralax) 17 gm DAILYPRN PRN ORAL Constipation 10/28/18 13:00 11/26/18 12:59 Temazepam (Restoril) 15 mg HSPRN PRN ORAL Insomnia 10/28/18 21:00 11/03/18 20:59 Bushra Payne MD Nov 02, 2018 12:03
--- NOTE | 2018-11-02 15:02 | NUR ---
*-* DISCHARGE PLANNED*-* PATIENT IS DISCHARGED TO: REHAB ON [facility] ROOM# 15-B SKILLED T:[phone] FOR NURSE TO NURSE REPORT [facility] HAS BEEN ARRANGED FOR BAKER BENCH [address] [id number]
--- NOTE | 2018-11-02 15:11 | NUR ---
*-* DISCHARGE PLANNED*-* PATIENT IS DISCHARGED TO: REHAB ON [facility] ROOM# 15-B SKILLED T:[phone] FOR NURSE TO NURSE REPORT [facility] HAS BEEN ARRANGED FOR CODING TECHNICIAN [address] [id number]
--- NOTE | 2018-11-02 16:58 | NUR ---
NURSE NOTES: 16:58 Gave hand off report to GRETEL Strange at rehab at [facility]. Endorsed about patient belongings containing $1488.59 champagne. In addition, the contacts, son and friend, does not want the champagne. Will be endorsed to shutdown coordinator.
--- NOTE | 2018-11-02 17:02 | NUR ---
NURSE NOTES: 15:00 Contacted Esteban Kendall (friend) and Addy (son) about patient going to [facility] at about 7pm tonight. They are aware of patient's discharge plan and had no further question. IN addition, both refused in taking the patient's belongings home.
--- NOTE | 2018-11-02 18:44 | Internal Med Progress Note ---
Subjective Date of Service: Nov 02, 2018 Physician Name Steven Calhoun Attending Physician Curry Hoffman MD Current Medications Medications (Trade) Dose Ordered Sig/Oscar Route PRN Reason Start Time Stop Time Status Last Admin Dose Admin Acetaminophen (Tylenol) 650 mg Q4H PRN ORAL T>100.5 10/28/18 12:15 11/26/18 20:14 Albuterol/ Ipratropium (Albuterol/ Ipratropium) 3 ml Q4H PRN HHN Shortness of Breath 10/30/18 10:45 11/03/18 10:44 Aspirin (ASA) 162 mg DAILY ORAL 10/29/18 09:00 11/27/18 08:59 11/02/18 09:06 Atorvastatin Calcium (Lipitor) 10 mg BEDTIME ORAL 10/30/18 21:00 11/29/18 20:59 11/01/18 21:29 Diltiazem HCl (Cardizem) 10 mg Q1H PRN IV heart rate more than 120 BPM 10/28/18 12:15 11/26/18 20:14 Enalaprilat (Vasotec) 2.5 mg Q6H PRN IV sbp more than 160mmHg 10/28/18 13:00 11/26/18 12:59 Heparin Sodium (Porcine) (Heparin 5000 units/ml) 5,000 units EVERY 12 HOURS SUBQ 10/28/18 21:00 11/26/18 20:59 11/02/18 09:11 Metoprolol Tartrate (Lopressor) 12.5 mg Q12HR ORAL 10/30/18 21:00 11/29/18 20:59 11/02/18 09:06 Morphine Sulfate (Morphine Sulfate) 2 mg Q4H PRN IVP Severe Pain (Pain Scale 7-10) 10/28/18 13:00 11/03/18 12:59 Nitroglycerin (Ntg) 0.4 mg Q5M PRN SL Prn Chest Pain 10/28/18 12:15 11/26/18 20:14 Ondansetron HCl (Zofran) 4 mg Q6H PRN IVP Nausea & Vomiting 10/28/18 13:00 11/26/18 12:59 Polyethylene Glycol (Miralax) 17 gm DAILYPRN PRN ORAL Constipation 10/28/18 13:00 11/26/18 12:59 Temazepam (Restoril) 15 mg HSPRN PRN ORAL Insomnia 10/28/18 21:00 11/03/18 20:59 Allergies: Coded Allergies: No Known Allergies (Unverified , 10/26/18) ROS Limited/Unobtainable: No Constitutional: Reports: no symptoms HEENT: Reports: no symptoms Cardiovascular: Reports: no symptoms Respiratory: Reports: no symptoms Gastrointestinal/Abdominal: Reports: no symptoms Genitourinary: Reports: no symptoms Neurologic/Psychiatric: Reports: no symptoms Subjective 73 YO M with previous right clavicle fracture admitted with elevated troponin. Cover for Int Med-Dr Hoffman. Await acceptance to Rehab on [facility] Objective Last Vital Signs Date Time Temp Pulse Resp B/P (MAP) Pulse Ox O2 Delivery O2 Flow Rate FiO2 11/02/18 16:00 98.6 68 18 117/68 (84) 98 11/02/18 09:00 Room Air 11/02/18 08:45 21 Laboratory Tests Test 11/02/18 05:00 White Blood Count 9.5 K/UL (4.8-10.8) Red Blood Count 4.30 M/UL (4.70-6.10) L Hemoglobin 14.9 G/DL (14.2-18.0) Hematocrit 43.7 % (42.0-52.0) Mean Corpuscular Volume 102 FL (80-99) H Mean Corpuscular Hemoglobin 34.7 PG (27.0-31.0) H Mean Corpuscular Hemoglobin Concent 34.2 G/DL (32.0-36.0) Red Cell Distribution Width 12.1 % (11.6-14.8) Platelet Count 210 K/UL (150-450) Mean Platelet Volume 6.7 FL (6.5-10.1) Neutrophils (%) (Auto) 61.7 % (45.0-75.0) Lymphocytes (%) (Auto) 27.5 % (20.0-45.0) Monocytes (%) (Auto) 5.8 % (1.0-10.0) Eosinophils (%) (Auto) 4.0 % (0.0-3.0) H Basophils (%) (Auto) 0.9 % (0.0-2.0) Sodium Level 140 MMOL/L (136-145) Potassium Level 4.5 MMOL/L (3.5-5.1) Chloride Level 105 MMOL/L (98-107) Carbon Dioxide Level 27 MMOL/L (21-32) Anion Gap 9 mmol/L (5-15) Blood Urea Nitrogen 34 mg/dL (7-18) H Creatinine 1.2 MG/DL (0.55-1.30) Estimat Glomerular Filtration Rate mL/min (>60) Glucose Level 101 MG/DL (74-106) Calcium Level 9.7 MG/DL (8.5-10.1) Intake and Output 11/01/18 11/02/18 19:00 07:00 Intake Total 820 ml 200 ml Balance 820 ml 200 ml Intake Oral 820 ml 200 ml # Voids 6 3 # Bowel Movements 1 1 Objective General Appearance: WD/WN, no apparent distress, alert EENT: PERRL/EOMI, normal ENT inspection Neck: non-tender, normal alignment, supple, normal inspection Cardiovascular: normal peripheral pulses, normal rate, regular rhythm, no gallop/murmur, no JVD Respiratory/Chest: chest wall non-tender, lungs clear, normal breath sounds, no respiratory distress, no accessory muscle use Abdomen: normal bowel sounds, non tender, soft, no organomegaly, no mass Extremities: normal range of motion, non-tender 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 (2) Alzheimer's dementia (3) Closed right clavicular fracture (4) Multiple falls (5) NSTEMI (non-ST elevated myocardial infarction) Assessment & Plan: ?demand ischemia? See cariology note. Assessment/Plan Discharge planning: Rehab on [place] [facility] Steven Calhoun MD Nov 02, 2018 18:44
--- NOTE | 2018-11-02 19:23 | NUR ---
HAND-OFF: Report given to GRETEL Dave. In addition, endorsed about delayed cotton picking machine operator time to 7:45pm to Shona Day and patient's belonging including champagne in safe.
--- NOTE | 2018-11-02 19:30 | NUR ---
NURSE NOTES: Report received from Martin MAJANO. Pt is resting in bed in stable condition. Pt is awake, alert, and oriented x2. Pt is on room air and breathing is even and unlabored. No acute distress noted. IV site is asymptomatic, patent, and intact. Bed is in lowest position with brake engaged, side rails up x2, and bed alarm on. Call light and side table are within reach. Will continue to monitor. Son is at bedside. Awaiting transport via [facility] for discharge to [facility].
--- NOTE | 2018-11-02 19:50 | NUR ---
NURSE NOTES: [facility] ETA 1945 and still not here for patient transport. Paulina, charge nurse, called [facility] and new ETA is 2014. Will continue to f/u regarding pickling operator for transport.
--- NOTE | 2018-11-02 20:10 | Cardiology Progress Note ---
Assessment/Plan Assessment/Plan 1. Abnormal cardiac enzymes. 2. Status post nonsyncopal fall with clavicular fracture. 3. Clavicular fracture. 4. Abnormal electrocardiogram. 5. Hypertension. 6. Hyperlipidemia. 7. MOderate LV hypertrophy 8. Diastolic dysfunction no peak or dang on the cardiac enzyme ekg unchanged echo normal lv systolic dysfunction with moderate LVH which is the likely cause of the st /t changes ' no sx to suggest coronary syndrome at some point in future will need perfusion imaging needs to fu with pmd thru hmo Subjective Cardiovascular: Denies: chest pain, lightheadedness, palpitations Respiratory: Denies: shortness of breath Gastrointestinal/Abdominal: Denies: abdominal pain Genitourinary: Denies: no symptoms Objective Last 24 Hour Vital Signs Date Time Temp Pulse Resp B/P (MAP) Pulse Ox O2 Delivery O2 Flow Rate FiO2 11/02/18 16:00 98.6 68 18 117/68 (84) 98 11/02/18 12:00 97.1 60 18 137/71 (93) 97 11/02/18 11:52 54 11/02/18 09:06 69 146/62 11/02/18 09:00 Room Air 11/02/18 08:45 59 18 Room Air 21 11/02/18 08:17 97.4 69 20 146/62 (90) 98 11/02/18 08:00 63 11/02/18 04:00 51 11/02/18 04:00 97.5 53 18 136/73 (94) 97 11/02/18 00:00 97.2 58 18 137/68 (91) 96 11/02/18 00:00 52 11/01/18 21:07 67 18 Room Air 21 11/01/18 21:00 54 139/66 11/01/18 21:00 Room Air General Appearance: alert Neck: supple Cardiovascular: normal rate Respiratory/Chest: normal breath sounds Abdomen: non tender Extremities: non-tender, no swelling Intake and Output 11/01/18 11/02/18 19:00 07:00 Intake Total 820 ml 200 ml Balance 820 ml 200 ml Intake Oral 820 ml 200 ml # Voids 6 3 # Bowel Movements 1 1 Laboratory Tests Test 11/02/18 05:00 White Blood Count 9.5 K/UL (4.8-10.8) Red Blood Count 4.30 M/UL (4.70-6.10) L Hemoglobin 14.9 G/DL (14.2-18.0) Hematocrit 43.7 % (42.0-52.0) Mean Corpuscular Volume 102 FL (80-99) H Mean Corpuscular Hemoglobin 34.7 PG (27.0-31.0) H Mean Corpuscular Hemoglobin Concent 34.2 G/DL (32.0-36.0) Red Cell Distribution Width 12.1 % (11.6-14.8) Platelet Count 210 K/UL (150-450) Mean Platelet Volume 6.7 FL (6.5-10.1) Neutrophils (%) (Auto) 61.7 % (45.0-75.0) Lymphocytes (%) (Auto) 27.5 % (20.0-45.0) Monocytes (%) (Auto) 5.8 % (1.0-10.0) Eosinophils (%) (Auto) 4.0 % (0.0-3.0) H Basophils (%) (Auto) 0.9 % (0.0-2.0) Sodium Level 140 MMOL/L (136-145) Potassium Level 4.5 MMOL/L (3.5-5.1) Chloride Level 105 MMOL/L (98-107) Carbon Dioxide Level 27 MMOL/L (21-32) Anion Gap 9 mmol/L (5-15) Blood Urea Nitrogen 34 mg/dL (7-18) H Creatinine 1.2 MG/DL (0.55-1.30) Estimat Glomerular Filtration Rate mL/min (>60) Glucose Level 101 MG/DL (74-106) Calcium Level 9.7 MG/DL (8.5-10.1) Jaiden Lee MD Nov 02, 2018 20:10
--- NOTE | 2018-11-02 21:10 | NUR ---
NURSE NOTES: Zach, Patient General Supervisor, and this RN counted pt money which had been kept in safe during patient's stay. Patient present during counting. Belongings, including champagne, checkbook and keys, returned to patient upon discharge.
--- NOTE | 2018-11-02 21:15 | NUR ---
NURSE NOTES: [facility][id number] on site for patient transport to [facility]. Report given by Martin Christie RN to Alie at [facility] earlier in the day. Paul Marrufo, EMT, received report regarding pt for transport. Pt is in stable condition upon discharge. court monitor removed, IV site removed, ID band removed. Belongings list checked with patient at bedside and given to EMT personnel for transport. Pt is A+Ox2 upon discharge which is baseline. Pt is on room air and breathing is even and unlabored. No acute distress noted. Endorsed plan of care. SonAristides, aware of discharge plan, date, and time.
--- NOTE | 2018-11-03 10:59 | Discharge Summary ---
Discharge Summary Discharge Summary _ DATE OF ADMISSION: 10/27/2018 DATE OF DISCHARGE: 11/02/2018 ADMITTING MD: Dr. Curry Hoffman DISCHARGED BY: Dr. Bushra Payne CONSULTANTS: Dr. Bushra Lee BRIEF HOSPITAL COURSE: Patient is a 73-year-old gentleman, who denied any past medical history except for dementia, who initially presented to the hospital on 10/26/2018 after he had a fall a week prior. He sustained injury to the right clavicle area and was diagnosed with right distal clavicle fracture. CT scan of the head was unremarkable. He was subsequently discharged home. However at home, he was complaining of severe pain. He then presented back to ED. On arrival to ED, vital signs were stable. Blood work did not show any leukocytosis, hemoglobin and hematocrit were stable. BUN was elevated to 52, creatinine 1.4. Total CK 693. Troponin was elevated to 0.223. EKG was in normal sinus rhythm with LVH and premature atrial complexes. Urinalysis was negative. Urine toxicology was negative. He was given aspirin. He was given nitroglycerin. He was then admitted to telemetry for evaluation of current falls, elevated troponin and dehydration. He was given IV hydration. Cardiac enzymes were monitored. Cardiac evaluation was done. Echocardiogram done showed ejection fraction of 65%, with normal wall motion, moderate left ventricular hypertrophy, mild mitral regurgitation, mild diastolic relaxation abnormality, PA pressure of 37. EKG showed sinus rhythm with diffuse ST segment depression in leads I, 2, aVF and T wave inversions in leads V4, V5 and V6. Cardiac enzymes were minimally abnormal but did not show any pattern to suggest acute coronary syndrome. He denied chest pain. Thyroid function was normal. Lipid panel was stable. He was continued on Lipitor 10 mg at bedtime. He was given antiplatelet therapy with aspirin and low-dose beta-gokul. There were no orthostatic changes seen. He was given fall precautions. He was noted to have some episodes of bradycardia while asleep. Heart rate eventually rises to normal when awake. He underwent PT evaluation. He was recommended discharge to snf. He was accepted to [facility] rehab. He was discharged to snf. FINAL DIAGNOSES: Abnormal cardiac enzymes/possible non-ST elevated OK, demand ischemia Acute comminuted right distal clavicular fracture status post non-syncopal fall Hypertension Hyperlipidemia Moderate LV hypertrophy Diastolic dysfunction Alzheimer's dementia Acute kidney injury Old cerebellar stroke DISPOSITION: Patient was discharged to a SNF. DISCHARGE MEDICATIONS: Refer to Discharge Medication List. DISCHARGE INSTRUCTIONS: Follow-up in a week. I have been assigned to complete a discharge summary on this account, I was not involved with the patient's management. Mia Csatanon NP Nov 03, 2018 10:59
== END 2018-11-02 21:35 | DRG 281 ==
LOC: EMR 18:10 → 2W 18:59 → EDBD 18:59 → EDBEDREQ 20:54 → EDBEDREQSVC 20:55 → EDBEDREQ 20:55 → 2E 10-28 12:15
DX: I21.4 Non-ST elevation (NSTEMI) myocardial infarction (principal); N17.9 Acute kidney failure, unspecified; S42.034A Nondisplaced fracture of lateral end of right clavicle, initial encounter for closed fracture; W19.XXXA Unspecified fall, initial encounter; Z91.81 History of falling; F03.90 Unspecified dementia, unspecified severity, without behavioral disturbance, psychotic disturbance, mood disturbance, and anxiety; Z60.2 Problems related to living alone; Z86.73 Personal history of transient ischemic attack (TIA), and cerebral infarction without residual deficits; E11.9 Type 2 diabetes mellitus without complications; E78.5 Hyperlipidemia, unspecified; G30.9 Alzheimer's disease, unspecified; F02.80 Dementia in other diseases classified elsewhere, unspecified severity, without behavioral disturbance, psychotic disturbance, mood disturbance, and anxiety; I34.0 Nonrheumatic mitral (valve) insufficiency; R00.1 Bradycardia, unspecified; I51.7 Cardiomegaly
CPT/HCPCS: 36415; 71045; 80048; 80053; 80061; 80307; 81001; 81003; 82550; 83690; 83880; 84133; 84300; 84443; 84484; 84550; 85025; 85610; 85730; 86140; 89050; 93005; 93306; 94664; 96360; 96361; 99285; J7620